=== PATIENT | male | born 1990 | race Caucasian/White ===

== ENCOUNTER 2023-08-05 08:16 | Observation (INO) | payer BC, OTHER ==
--- NOTE | 2023-08-05 08:20 | ED ---
General Adult HPI - General Source: RN notes reviewed <Kika Zaidi - Last Filed: 08/05/23 08:20> <Delmi Lopez - Last Filed: 08/10/23 23:29> - General Stated complaint: Body numbness Time Seen by Provider: 08/05/23 08:19 - History of Present Illness Initial comments: 33-year-old male with no significant past medical history presents the emergency department with abdominal pain. Patient reports accompanying symptoms of nausea, but vomiting, diarrhea, body "numbness." (Kika Zaidi) 32-year-old male with no reported past medical history presents to emergency room reporting nausea, vomiting, diarrhea. States the symptoms have been going on for the past couple of days. Denies any sick contacts with similar symptoms. Reports that he has right lower quadrant abdominal pain associated with it. Patient states he has been throwing up so much that it is caused him to have complete body numbness and tingling. States that this affects his head, legs and arms equally bilaterally. He states he tried to drink a lot of water yesterday. He was dehydrated but still has symptoms. He denies any chest pain or shortness of breath. Denies black or bloody stools. Denies hematemesis. No fevers. Patient found be hypertensive upon hospital arrival. Denies history of such. He does not see a physician. No alleviating, precipitating modifying factors (Delmi Lopez) - Related Data Previous Rx's Medication Instructions Recorded HYDROcodone/APAP 5-325MG [Mccarr 1 tab PO Q6HR PRN 3 Days #12 tab 08/07/23 5-325] Hyoscyamine Sulfate [Levbid] 0.75 mg PO HS #30 tab 08/07/23 Omeprazole [PriLOSEC] 40 mg PO DAILY 30 Days #30 cap 08/07/23 Ondansetron [Zofran] 4 mg PO Q8HR PRN 10 Days #30 tab 08/07/23 Allergies Allergy/AdvReac Type Severity Reaction Status Date / Time No Known Allergies Allergy Verified 08/05/23 14:28 Review of Systems ROS Other: All systems not noted in ROS Statement are negative. <Kika Zaidi - Last Filed: 08/05/23 08:20> ROS Other: All systems not noted in ROS Statement are negative. <Delmi Lopez - Last Filed: 08/10/23 23:29> ROS Statement: Those systems with pertinent positive or pertinent negative responses have been documented in the HPI. Past Medical History Additional Past Medical History / Comment(s): frequent abdominal pain, N/V, has umbilical hernia, hx of kidney stones History of Any Multi-Drug Resistant Organisms: None Reported Past Surgical History: Hernia Repair Additional Past Surgical History / Comment(s): as a baby Past Anesthesia/Blood Transfusion Reactions: No Reported Reaction Past Alcohol Use History: Occasional Past Drug Use History: Marijuana <Kika Zaidi - Last Filed: 08/05/23 08:20> General Exam <JaimeenoellejamesKika - Last Filed: 08/05/23 08:20> General appearance: alert, in no apparent distress Head exam: Present: atraumatic, normocephalic, normal inspection Eye exam: Present: normal appearance, PERRL, EOMI. Absent: scleral icterus, conjunctival injection, periorbital swelling ENT exam: Present: normal exam, mucous membranes moist Neck exam: Present: normal inspection. Absent: tenderness, meningismus, lymphadenopathy Respiratory exam: Present: normal lung sounds bilaterally. Absent: respiratory distress, wheezes, rales, rhonchi, stridor Cardiovascular Exam: Present: regular rate, normal rhythm, normal heart sounds. Absent: systolic murmur, diastolic murmur, rubs, gallop, clicks GI/Abdominal exam: Present: soft, normal bowel sounds. Absent: distended, tenderness, guarding, rebound, rigid Extremities exam: Present: normal inspection, full ROM, normal capillary refill. Absent: tenderness, pedal edema, joint swelling, calf tenderness Back exam: Present: normal inspection Neurological exam: Present: alert, oriented X3, CN II-XII intact Psychiatric exam: Present: normal affect, normal mood Skin exam: Present: warm, dry, intact, normal color. Absent: rash <Delmi Lopez - Last Filed: 08/10/23 23:29> - General Exam Comments Initial Comments: Visual Physical Exam Vital signs reviewed General: Well-appearing, nontoxic, no acute distress. Head: Normocephalic, atraumatic Eyes: PERRLA, EOMI ENT: Airway patent Chest: Nonlabored breathing Skin: No visual rash, normal skin tone Neuro: Alert and oriented 3 Musculoskeletal: No gross abnormalities I performed the quick note portion of this exam, verbal signature Kika Zaidi PA-C (Kika Zaidi) Course Vital Signs 08/05/23 08/05/23 08/05/23 08:34 10:22 12:28 Temperature 97.9 F Pulse Rate 87 98 112 H Respiratory 18 18 18 Rate Blood Pressure 151/60 144/100 148/101 O2 Sat by Pulse 95 98 Oximetry 08/05/23 08/05/23 08/05/23 13:46 16:35 18:08 Temperature Pulse Rate 102 H 97 98 Respiratory 18 18 18 Rate Blood Pressure 131/91 136/105 140/98 O2 Sat by Pulse 96 97 97 Oximetry 08/05/23 19:28 Temperature Pulse Rate 80 Respiratory 18 Rate Blood Pressure 137/80 O2 Sat by Pulse 96 Oximetry Medical Decision Making - Lab Data Result diagrams: 08/06/23 05:33 08/06/23 05:33 <Delmi Lopez A - Last Filed: 08/10/23 23:29> - Medical Decision Making Was pt. sent in by a medical professional or institution ([facility], [employer], urgent care, hospital, or [facility]...) When possible be specific @ -No Did you speak to anyone other than the patient for history (EMS, parent, family, police, friend...)? What history was obtained from this source @ -No Did you review nursing and triage notes (agree or disagree)? Why? @ -I reviewed and agree with nursing and triage notes Were old charts reviewed (outside hosp., previous admission, EMS record, old EKG, old radiological studies, urgent care reports/EKG's, [facility] records)? Report findings @ -No old charts were reviewed Differential Diagnosis (chest pain, altered mental status, abdominal pain women, abdominal pain men, vaginal bleeding, weakness, fever, dyspnea, syncope, headache, dizziness, GI bleed, back pain, seizure, CVA, palpatations, mental health, musculoskeletal)? @ -Neuropathy, dissection, CVA, gastroenteritis, TIA, electrolyte abnormality EKG interpreted by me (3pts min.). @ -yes and demonstrate sinus rhythm rate of 87. Pr interval 153. QRS 85. QTC of 372. No acute ST segment elevations or depressions X-rays interpreted by me (1pt min.). @ -None done CT interpreted by me (1pt min.). @ -Yes and demonstrates hepatomegaly U/S interpreted by me (1pt. min.). @ -None done What testing was considered but not performed or refused? (CT, X-rays, U/S, labs)? Why? @ -None What meds were considered but not given or refused? Why? @ -None Did you discuss the management of the patient with other professionals (professionals i.e. DrElle, PA, [employer], lab, RT, psych nurse, executive secretary social welfare, mucking machine operator, teacher, investment officer, casework manager)? Give summary @ -I spoke with Dr. Esposito who agreed to admit patient Was smoking cessation discussed for >3mins.? @ -No Was critical care preformed (if so, how long)? @ -No Were there social determinants of health that impacted care today? How? (Homelessness, low income, unemployed, alcoholism, drug addiction, transportation, low edu. Level, literacy, decrease access to med. care, longterm, rehab)? @ -No Was there de-escalation of care discussed even if they declined (Discuss DNR or withdrawal of care, Hospice)? DNR status @ -No What co-morbidities impacted this encounter? (DM, HTN, Smoking, COPD, CAD, Cancer, CVA, ARF, Chemo, Hep., AIDS, mental health diagnosis, sleep apnea, morbid obesity)? @ -Alcohol use Was patient admitted / discharged? Hospital course, mention meds given and route, prescriptions, significant lab abnormalities, going to OR and other pertinent info. @ -Admitted. Upon arrival patient was placed into room 4. Thorough history and physical exam was performed. IV access was established and laboratory studies are conducted. Patient was provided with fluids and antiemetics. Upon reevaluation the patient continues to have pain. He was given a dose of morphine. I did discuss the diagnosis, differential and treatment options. Patient still has no improvement in his symptoms. Continues to feel nauseated and refuses oral intake. Because of this I did offer admission. Called and spoke with Dr. Esposito who agreed to admit the patient. We will place surgery on consult Undiagnosed new problem with uncertain prognosis? @ -yes Drug Therapy requiring intensive monitoring for toxicity (Heparin, Nitro, Insulin, Cardizem)? @ -No Were any procedures done? @ -No Diagnosis/symptom? @ -Intractable nausea vomiting, intractable right sided abdominal pain, full body paresthesias, accelerated hypertension Acute, or Chronic, or Acute on Chronic? @ -Acute Uncomplicated (without systemic symptoms) or Complicated (systemic symptoms)? @ -complicated Side effects of treatment? @ -No Exacerbation, Progression, or Severe Exacerbation? @ -No Poses a threat to life or bodily function? How? (Chest pain, USA, GA, pneumonia, PE, COPD, DKA, ARF, appy, cholecystitis, CVA, Diverticulitis, Homicidal, Suicidal, threat to staff... and all critical care pts) @ -No (Delmi Lopez) - Lab Data Lab Results 08/05/23 08/05/23 08/05/23 Range/Units 08:49 08:49 08:49 WBC 8.2 (3.8-10.6) k/uL RBC 5.70 (4.30-5.90) m/uL Hgb 17.4 (13.0-17.5) gm/dL Hct 49.2 (39.0-53.0) % MCV 86.3 (80.0-100.0) fL MCH 30.5 (25.0-35.0) pg MCHC 35.4 (31.0-37.0) g/dL RDW 12.8 (11.5-15.5) % Plt Count 251 (150-450) k/uL MPV 7.8 Neutrophils % 77 % Lymphocytes % 14 % Monocytes % 7 % Eosinophils % 1 % Basophils % 0 % Neutrophils # 6.3 (1.3-7.7) k/uL Lymphocytes # 1.1 (1.0-4.8) k/uL Monocytes # 0.5 (0-1.0) k/uL Eosinophils # 0.1 (0-0.7) k/uL Basophils # 0.0 (0-0.2) k/uL Sodium 135 L (137-145) mmol/L Potassium 4.1 (3.5-5.1) mmol/L Chloride 94 L (98-107) mmol/L Carbon Dioxide 26 (22-30) mmol/L Anion Gap 15 mmol/L BUN 14 (9-20) mg/dL Creatinine 0.95 (0.66-1.25) mg/dL Est GFR (CKD-EPI)AfAm >90 (>60 ml/min/1.73 sqM) Est GFR (CKD-EPI)NonAf >90 (>60 ml/min/1.73 sqM) Glucose 102 H (74-99) mg/dL Plasma Lactic Acid Master 1.8 (0.7-2.0) mmol/L Calcium 10.2 (8.4-10.2) mg/dL Magnesium 1.7 (1.6-2.3) mg/dL Total Bilirubin 1.6 H (0.2-1.3) mg/dL AST 38 (17-59) U/L ALT 46 (4-49) U/L Alkaline Phosphatase 59 (38-126) U/L Troponin I (0.000-0.034) ng/mL Total Protein 8.5 H (6.3-8.2) g/dL Albumin 5.1 H (3.5-5.0) g/dL Amylase 74 (30-110) U/L Lipase 55 (23-300) U/L TSH 1.430 (0.465-4.680) mIU/L Urine Color Urine Appearance (Clear) Urine pH (5.0-8.0) Ur Specific Hope (1.001-1.035) Urine Protein (Negative) Urine Glucose (UA) (Negative) Urine Ketones (Negative) Urine Blood (Negative) Urine Nitrite (Negative) Urine Bilirubin (Negative) Urine Urobilinogen (<2.0) mg/dL Ur Leukocyte Esterase (Negative) Influenza Type A (PCR) (Not Detectd) Influenza Type B (PCR) (Not Detectd) RSV (PCR) (Not Detectd) SARS-CoV-2 (PCR) (Not Detectd) 08/05/23 08/05/23 08/05/23 Range/Units 08:49 10:14 10:14 WBC (3.8-10.6) k/uL RBC (4.30-5.90) m/uL Hgb (13.0-17.5) gm/dL Hct (39.0-53.0) % MCV (80.0-100.0) fL MCH (25.0-35.0) pg MCHC (31.0-37.0) g/dL RDW (11.5-15.5) % Plt Count (150-450) k/uL MPV Neutrophils % % Lymphocytes % % Monocytes % % Eosinophils % % Basophils % % Neutrophils # (1.3-7.7) k/uL Lymphocytes # (1.0-4.8) k/uL Monocytes # (0-1.0) k/uL Eosinophils # (0-0.7) k/uL Basophils # (0-0.2) k/uL Sodium (137-145) mmol/L Potassium (3.5-5.1) mmol/L Chloride (98-107) mmol/L Carbon Dioxide (22-30) mmol/L Anion Gap mmol/L BUN (9-20) mg/dL Creatinine (0.66-1.25) mg/dL Est GFR (CKD-EPI)AfAm (>60 ml/min/1.73 sqM) Est GFR (CKD-EPI)NonAf (>60 ml/min/1.73 sqM) Glucose (74-99) mg/dL Plasma Lactic Acid Master (0.7-2.0) mmol/L Calcium (8.4-10.2) mg/dL Magnesium (1.6-2.3) mg/dL Total Bilirubin (0.2-1.3) mg/dL AST (17-59) U/L ALT (4-49) U/L Alkaline Phosphatase (38-126) U/L Troponin I <0.012 (0.000-0.034) ng/mL Total Protein (6.3-8.2) g/dL Albumin (3.5-5.0) g/dL Amylase (30-110) U/L Lipase (23-300) U/L TSH (0.465-4.680) mIU/L Urine Color Yellow Urine Appearance Clear (Clear) Urine pH 7.0 (5.0-8.0) Ur Specific Hope 1.021 (1.001-1.035) Urine Protein Trace H (Negative) Urine Glucose (UA) Negative (Negative) Urine Ketones 3+ H (Negative) Urine Blood Negative (Negative) Urine Nitrite Negative (Negative) Urine Bilirubin Negative (Negative) Urine Urobilinogen 2.0 (<2.0) mg/dL Ur Leukocyte Esterase Negative (Negative) Influenza Type A (PCR) Not Detected (Not Detectd) Influenza Type B (PCR) Not Detected (Not Detectd) RSV (PCR) Not Detected (Not Detectd) SARS-CoV-2 (PCR) Not Detected (Not Detectd) Disposition <Kika Zaidi - Last Filed: 08/05/23 08:20> Is patient prescribed a controlled substance at d/c from ED?: No Time of Disposition: 14:25 Decision to Admit Reason: Admit from EC Decision Date: 08/05/23 Decision Time: 14:25 <Delmi Lopez - Last Filed: 08/10/23 23:29> Clinical Impression: Hypertension, Nausea & vomiting, Ketosis Disposition: ADMITTED IP TO THIS [facility] Condition: Stable
[2023-08-05 08:59] LABS: Basophils % (A) 0 %; Eosinophils # (A) 0.1 k/uL (0-0.7); Eosinophils % (A) 1 %; HCT 49.2 % (39.0-53.0); HGB 17.4 gm/dL (13.0-17.5); Lymphocytes # (A) 1.1 k/uL (1.0-4.8); Lymphocytes % (A) 14 %; MCH 30.5 pg (25.0-35.0); MCHC 35.4 g/dL (31.0-37.0); MCV 86.3 fL (80.0-100.0); Mean Platelet Volume 7.8; Monocytes # (A) 0.5 k/uL (0-1.0); Monocytes % (A) 7 %; Neutrophils # (A) 6.3 k/uL (1.3-7.7); Neutrophils % (A) 77 %; Platelet Count 251 k/uL (150-450); RDW 12.8 % (11.5-15.5); WBC 8.2 k/uL (3.8-10.6)
[2023-08-05 09:01] LABS: Appearance,Urine Clear (Clear); Bilirubin,Urine Negative (Negative); Blood,Urine Negative (Negative); Color,Urine Yellow; Glucose,Urine (UA) Negative (Negative); Ketones,Urine 3+ (Negative); Leukocyte Esterase,Urine Negative (Negative); Nitrite,Urine Negative (Negative); Protein,Urine Trace (Negative); Specific Gravity,Urine 1.021 (1.001-1.035)
[2023-08-05 09:15] LABS: ALT 46 U/L (4-49); AST 38 U/L (17-59); African American GFR (CKD) >90 (>60 ml/min/1.73 sqM); Albumin 5.1 g/dL (3.5-5.0); Alkaline Phosphatase 59 U/L (38-126); Amylase 74 U/L (30-110); Anion Gap 15 mmol/L; Blood Urea Nitrogen 14 mg/dL (9-20); Calcium 10.2 mg/dL (8.4-10.2); Carbon Dioxide 26 mmol/L (22-30); Chloride 94 mmol/L (98-107); Glucose 102 mg/dL (74-99); Lipase 55 U/L (23-300); Magnesium 1.7 mg/dL (1.6-2.3); Non-African American GFR(CKD) >90 (>60 ml/min/1.73 sqM); Potassium 4.1 mmol/L (3.5-5.1); Sodium 135 mmol/L (137-145); Total Bilirubin 1.6 mg/dL (0.2-1.3); Total Protein 8.5 g/dL (6.3-8.2)
[2023-08-05] MEDS ORDERED: SODIUM CHLORIDE 0.9% 2,000 ML IV ONE (09:39)
--- NOTE | 2023-08-05 11:31 | CT ---
EXAMINATION TYPE: CT abdomen pelvis w con CT DLP: 851.5 mGycm, Automated exposure control for dose reduction was used. DATE OF EXAM: 08/05/2023 11:09 AM COMPARISON: None. CLINICAL INDICATION:Male, 32 years old with history of rlq pain, vomiting; RLQ pain TECHNIQUE: Axial CT of the abdomen and pelvis. Sagittal and coronal reformats were created on a [employer] workstation. Contrast used:100 mL of Isovue 370 with IV Contrast, (none if empty) Oral contrast used: without Oral Contrast (none if empty) FINDINGS: LOWER CHEST: Unremarkable ABDOMEN LIVER: Diffusely hypoattenuating parenchyma. Focal fatty infiltration of the falciform ligament. GALLBLADDER AND BILE DUCTS: Unremarkable. PANCREAS: Unremarkable. SPLEEN: Unremarkable. ADRENAL GLANDS: Unremarkable. KIDNEYS AND URETERS: No evidence of hydronephrosis or renal calculus. The ureters are unremarkable. PELVIS BLADDER: Unremarkable REPRODUCTIVE: Unremarkable. ABDOMEN & PELVIS STOMACH AND BOWEL: No evidence of bowel obstruction. The appendix is normal. PERITONEUM/RETROPERITONEUM: No evidence of pneumoperitoneum or free fluid. VASCULATURE: No evidence of aortic aneurysm. MUSCULOSKELETAL: No acute osseous abnormalities LYMPH NODES: No gross evidence for lymphadenopathy. SOFT TISSUE/ABDOMINAL WALL: Fat-containing buccal hernia. IMPRESSION: No evidence for acute right lower quadrant process to explain the patient's pain. The appendix is nor mal. No obstructive uropathy or renal calculus.
[2023-08-05] MEDS ORDERED: ONDANSETRON 4 MG/2 ML VIAL IVP STA (12:16)
[2023-08-05] MEDS ORDERED: MORPHINE SULFATE 4 MG/ML SYRINGE IVP STA (12:31)
[2023-08-05] MEDS ORDERED: HYDROmorphone 1 MG/ML 1 ML SYRINGE IVP STA (13:58)
[2023-08-05] MEDS ORDERED: NALOXONE 0.4 MG/ML 1 ML VIAL IV PRN (14:25)
--- NOTE | 2023-08-05 16:35 | US ---
EXAMINATION TYPE: US abdomen limited DATE OF EXAM: 08/05/2023 COMPARISON: Same day CT CLINICAL INDICATION: Male, 32 years old with history of liver, gallbladder; ABD Pain, abnormal labs TECHNIQUE: Multiple sonographic images of the right upper quadrant are obtained. FINDINGS: EXAM MEASUREMENTS: Liver Length: 18.3 cm Gallbladder Wall: 0.1 cm CBD: 0.5 cm Right Kidney: 11.2 x 4.8 x 5.8 cm STEEL RULE INSPECTOR NOTES: Pancreas: wnl, tail obscured by overlying bowel gas Liver: Enlarged, heterogeneous, difficult to penetrate Gallbladder: wnl Evidence for sonographic Donaldson's sign: No CBD: wnl Right Kidney: wnl The visualized portions of the pancreas are within normal limits. The tail is obscured by overlying b owel gas. Liver is diffusely heterogenous with increased echotexture and enlarged. It is difficult to penetrate. This was evaluation focal lesions. No gross evidence of focal lesion. Gallbladder is with in normal limits without evidence of wall thickening, pericholecystic fluid, or stones. Per sonograph er, negative sonographic Donaldson sign. Common bile duct is within normal limits. Right kidney is unrem arkable without evidence of hydronephrosis, nephrolithiasis, or solid mass. IMPRESSION: 1. No ultrasound evidence for acute process. 2. Hepatomegaly with marked fatty infiltration.
[2023-08-05 18:18] LABS: Amphetamine Screen,Urine Not Detected (NotDetected); Barbiturate Screen,Urine Not Detected (NotDetected); Benzodiazepines Screen,Urine Not Detected (NotDetected); Cocaine Screen,Urine Not Detected (NotDetected); Methadone Screen, Urine Not Detected (NotDetected); Opiate Screen,Urine Detected (NotDetected); Phencyclidine Screen,Urine Not Detected (NotDetected); Tricyclic Antidepressant,Urine Not Detected (NotDetected); Urn Cannabinoid Scrn Detected (NotDetected)
[2023-08-05 18:19] LABS: Oxycodone Screen, Urine Not Detected (NotDetected)
[2023-08-05] MEDS: SODIUM CHLORIDE 0.9% 1,000 ML IV SCH ×2 (19:29→22:29)
[2023-08-05] MEDS: MORPHINE SULFATE 4 MG/ML SYRINGE IV PRN (20:15)
[2023-08-05] MEDS: ONDANSETRON 4 MG/2 ML VIAL IVP PRN (20:33)
--- NOTE | 2023-08-05 23:59 | P.HPIM ---
History of Present Illness H&P Date: 08/05/23 Chief Complaint: Nausea and vomiting and diarrhea Patient is a 33-year-old male without significant past medical history presents to ER with complaints of nausea vomiting and diarrhea. Patient has been having symptoms for the past 3 days. Patient is also complaining of right lower quadrant abdominal pain. Patient has been having multiple episodes of emesis and states that it causes him numbness in the head and tingling sensation in the arms and legs bilaterally. Patient thought he was very dehydrated yesterday and drank a lot of water. Patient is also complaining of dark red blood in the emesis. Denies any bright blood. He denies any dark-colored stools. No complaints of fever or chills. No chest pain or shortness of breath. No leg swelling. Patient is very anxious and also found to have elevated blood pressure with SBP in 150s on admission. Patient does not have any primary care physician and does not take any medications at home. CT of the abdomen pelvis showed no evidence of acute right lower quadrant process to explain the patient's pain. The appendix is normal. No obstructive uropathy or renal calculus noted. EKG showed sinus rhythm with sinus arrhythmia. Laboratory data showed sodium 135 potassium 4.1 chloride 94 bicarb is 26 BUN 14 and creatinine 0.95 blood sugar 102 and total bilirubin level is 1.6 with. Liver enzymes elevated. Lipase 55 amylase 74 and TSH 1.430 troponin x1 negative. Magnesium 1.7. Review of Systems Constitutional: Patient denies any fever or chills . no Generalized weakness. Abdomen: Patient complains of nausea vomiting and diarrhea and right lower quadrant abd. pain Cardiovascular: Patient denies any chest pain or short of breath no palpitations. Respiratory: patient denied any cough . no sputum production. No shortness of breath Neurologic: Patient denied any numbness or tingling headache. Musculoskeletal: Patient denies any complaints of joint swelling or deformity. Skin: Negative Psychiatric: Anxiety Endocrine: No heat or cold intolerance. No recent weight gain. Genitourinary: No dysuria or hematuria. All other 14 point ROS negative except the above Past Medical History Additional Past Medical History / Comment(s): frequent abdominal pain, N/V, has umbilical hernia, hx of kidney stones History of Any Multi-Drug Resistant Organisms: None Reported Past Surgical History: Hernia Repair Additional Past Surgical History / Comment(s): as a baby Past Anesthesia/Blood Transfusion Reactions: No Reported Reaction Past Psychological History: No Psychological Hx Reported Smoking Status: Current every day smoker Past Alcohol Use History: Occasional Past Drug Use History: Marijuana Medications and Allergies Home Medications Medication Instructions Recorded Confirmed Type No Known Home Medications 08/05/23 08/05/23 History Allergies Allergy/AdvReac Type Severity Reaction Status Date / Time No Known Allergies Allergy Verified 08/05/23 14:28 Physical Exam Vitals: Vital Signs Temp Pulse Resp BP Pulse Ox 08/05/23 18:08 98 18 140/98 97 08/05/23 16:35 97 18 136/105 97 08/05/23 13:46 102 H 18 131/91 96 08/05/23 12:28 112 H 18 148/101 98 08/05/23 10:22 98 18 144/100 95 08/05/23 08:34 97.9 F 87 18 151/60 Intake and Output 08/05/23 08/05/23 08/05/23 06:59 14:59 22:59 Other: Weight 77.111 kg PHYSICAL EXAMINATION: Patient is lying in the bed, no acute distress, awake alert and oriented but anxious... HEENT: Normocephalic. Neck is supple. Pupils reactive. Nostrils clear. Oral cavity is moist. Neck reveals no JVD, carotid bruits, or thyromegaly. CHEST EXAMINATION: Trachea is central. Symmetrical expansion. Lung gaxiola clear to auscultation and percussion. CARDIAC: Normal S1, S2 with no gallops. No murmurs ABDOMEN: Soft. Bowel sounds present. Mild right quadrant tenderness. No guarding or rigidity.. No organomegaly. No abdominal bruits. Extremities: reveal no edema. No clubbing or cyanosis Neurologically awake, alert, oriented x3 with well-coordinated movements. No focal deficits noted Skin: No rash or skin lesions. Psychiatric: Coperative. Nonsuicidal, Musculoskeletal: No joint swelling or deformity. Normal range of motion. Results CBC & Chem 7: 08/05/23 08:49 08/05/23 08:49 Labs: Abnormal Lab Results - Last 24 Hours (Table) 08/05/23 08/05/23 08/05/23 Range/Units 08:49 08:49 17:31 Sodium 135 L (137-145) mmol/L Chloride 94 L (98-107) mmol/L Glucose 102 H (74-99) mg/dL Total Bilirubin 1.6 H (0.2-1.3) mg/dL Total Protein 8.5 H (6.3-8.2) g/dL Albumin 5.1 H (3.5-5.0) g/dL Urine Protein Trace H (Negative) Urine Ketones 3+ H (Negative) Urine Opiates Screen Detected H (NotDetected) U Marijuana (THC) Screen Detected H (NotDetected) Thrombosis Risk Factor Assmnt - DVT/VTE Prophylaxis DVT/VTE Prophylaxis: Pharmacologic Prophylaxis ordered Assessment and Plan Assessment: Intractable nausea vomiting and diarrhea along with abdominal pain. Possible gastroenteritis versus withdrawal symptoms. UDS positive for opiates and marijuana Questionable coffee-ground emesis Elevated blood pressure Hypomagnesemia Anxiety GI prophylaxis and DVT prophylaxis. Plan: Patient be continued on IV hydration and continue with pain management and symptomatic management for nausea and vomiting. CT of abdomen pelvis showed no acute process. Replace magnesium and general surgery was consulted for further evaluation of abdominal pain. Continue to follow closely. Follow-up CBC and BMP tomorrow.
[2023-08-06] MEDS: MAGNESIUM SULFATE-D5W PMX 1 GM in DEXTROSE/WATER 1 100ML.BAG IVPB SCH ×2 (00:46→01:33)
[2023-08-06] MEDS: PANTOPRAZOLE 40 MG/10 ML VIAL IVP SCH ×2 (00:46→08:05)
[2023-08-06] MEDS: HEPARIN SODIUM,PORCINE 5,000 UNIT/ML 1 ML VIAL SQ SCH ×5 (00:47→23:44)
[2023-08-06] MEDS: SODIUM CHLORIDE 0.9% 1,000 ML IV SCH ×3 (03:33→20:26)
[2023-08-06] MEDS: MORPHINE SULFATE 4 MG/ML SYRINGE IV PRN ×4 (04:03→20:25)
[2023-08-06 08:25] VITALS: RESP 16
[2023-08-06 09:24] LABS: Basophils # (A) 0.04 X 10*3/uL (0.00-0.10); Basophils % (A) 0.8 %; Eosinophils # (A) 0.22 X 10*3/uL (0.04-0.35); Eosinophils % (A) 4.3 %; HCT 41.5 % (39.6-50.0); HGB 14.7 d/dL (13.0-17.0); Lymphocytes # (A) 1.19 X 10*3/uL (0.90-5.00); Lymphocytes % (A) 23.4 %; MCH 30.4 pg (27.0-32.0); MCHC 35.4 d/dL (32.0-37.0); MCV 85.7 FL (80.0-97.0); Mean Platelet Volume 10.3 FL (9.5-12.2); Monocytes # (A) 0.53 X 10*3/uL (0.20-1.00); Monocytes % (A) 10.4 %; NRBC Per 100 WBC 0 X 10*3/uL (0.00-0.01); Neutrophils # (A) 3.08 X 10*3/uL (1.80-7.70); Neutrophils % (A) 60.5 %; Platelet Count 163 X 10*3/uL (140-440); RBC 4.84 X 10*6/uL (4.40-5.60); RDW 12.4 % (11.5-14.5); WBC 5.09 X 10*3/uL (4.50-10.00)
[2023-08-06 09:30] LABS: Blood Urea Nitrogen 10.9 mg/dL (9.0-27.0); Calcium 8.6 mg/dL (8.7-10.3); Chloride 102 mmol/L (96-109); Glucose 82 mg/dL (70-110); Potassium 4.3 mmol/L (3.5-5.5); Sodium 137 mmol/L (135-145)
[2023-08-06] MEDS: ONDANSETRON 4 MG/2 ML VIAL IVP PRN ×2 (12:38→20:24)
--- NOTE | 2023-08-06 12:46 | NM ---
EXAMINATION TYPE: NM hepatobiliary w CCK DATE OF EXAM: 08/06/2023 COMPARISON: Ultrasound 08/05/2023 CLINICAL INDICATION: Male, 32 years old with history of Abdominal pain; TECHNIQUE: After the intravenous administration of 4.5 mCi Tc 99m Mebrofenin hepatobiliary scintigrap hy is performed. Immediate images post injection. FINDINGS: There is satisfactory initial accumulation of tracer by the liver. The gallbladder is visualized wit hin 46 minutes. The small bowel activity is noted within 10 minutes. At one hour CCK was administer ed, patient was injected with 1.5 mcg of Kinevac, and gallbladder ejection fraction is calculated at 28 %, which is diminished. IMPRESSION: 1. No scintigraphic evidence for acute cholecystitis. 2. However, gallbladder ejection fraction is diminished at 28%. Findings may be seen with chronic cho lecystitis or biliary dyskinesia.
--- NOTE | 2023-08-06 16:04 | P.GSCN ---
History of Present Illness Consult date: 08/06/23 History of present illness: CHIEF COMPLAINT: Abdominal pain HISTORY OF PRESENT ILLNESS: This is a 32-year-old male who has presented with nausea vomiting and diarrhea. Patient does have pain in the right upper quadrant and right lower abdomen. Patient reports that he has been dealing with this right upper quadrant pain intermittently for years. He does report a fa zoey history of cholecystectomies. He does report having intermittent blood in his stools. It's been a week since he last reported any blood in his stools. Surgical history includes a hernia repair as an infant. He has had EGD years ago and reported as normal. He has never had a colonoscopy. PAST MEDICAL HISTORY: Kidney stones PAST SURGICAL HISTORY: Hernia repair as an infant MEDICATIONS: See below ALLERGIES: See below SOCIAL HISTORY: No illicit drug use. Does report a history of heavy alcohol use. But has cut that over the last 6 months and only has alcoholic beverages on the weekends. REVIEW OF SYSTEMS: CONSTITUTIONAL: Denies fever or chills. HEENT: Denies blurred vision, vision changes, or eye pain. Denies hemoptysis CARDIOVASCULAR: Denies chest pain or pressure. RESPIRATORY: No shortness of breath. GASTROINTESTINAL: See HPI for pertinent findings HEMATOLOGIC: Denies bleeding disorders. GENITOURINARY: Denies any blood in urine or increased urinary frequency. SKIN: Denies pruitis. Denies rash. PHYSICAL EXAM: VITAL SIGNS: Reviewed GENERAL: Well-developed in no acute distress. HEENT: No sclera icterus. Extraocular movements grossly intact. Moist buccal m ucosa. Head is atraumatic, normocephalic. No nasal drainage. ABDOMEN: Soft. Nondistended. Tenderness of palpation of the right upper quadrant and right lower abdominal tenderness NEUROLOGIC: Alert and oriented. Cranial nerves II through XII grossly intact. LABORATORY DATA: WBC 5.09 Hgb 14.7 platelets 163 Sodium 137 potassium is 4.3 creatinine 1.0 Total bili 1.6 AST 38 ALT 46 lipase 55 IMAGING: Computed tomography scan of pelvis no evidence for acute right lower quadrant process to patient's pain. The appendix is normal. No obstructive uropathy or renal calculus. Abdominal ultrasound no EVIDENCE OF ACUTE PROCESS. HEPATOMEGALY WITH MARKED FATTY INFILTRATION. HIDA scan no evidence for acute cholecystitis. However gallbladder EF is diminished at 28%. Findings may be seen with chronic cholecystitis or biliary dyskinesia ASSESSMENT: 1. Right upper quadrant abdominal pain 2. Chronic cholecystitis or biliary dyskinesia. HIDA scan shows gallbladder EF diminished at 28% 3. Intermittent bloody stools. No active bleeding for over one week. Hemoglobin stable. PLAN: -No surgical intervention planned at this time -Start full liquid diet -Continue to monitor -Recommend colonoscopy outpatient due to intermittent bloody stools Physician Door Clamp Operator note has been reviewed by physician. Signing provider agrees with the documented findings, assessment, and plan of care. Past Medical History Additional Past Medical History / Comment(s): frequent abdominal pain, N/V, has umbilical hernia, hx of kidney stones History of Any Multi-Drug Resistant Organisms: None Reported Past Surgical History: Hernia Repair Additional Past Surgical History / Comment(s): as a baby Past Anesthesia/Blood Transfusion Reactions: No Reported Reaction Past Psychological History: No Psychological Hx Reported Smoking Status: Current every day smoker Past Alcohol Use History: Occasional Past Drug Use History: Marijuana Medications and Allergies Home Medications Medication Instructions Recorded Confirmed Type No Known Home Medications 08/05/23 08/05/23 History Allergies Allergy/AdvReac Type Severity Reaction Status Date / Time No Known Allergies Allergy Verified 08/05/23 14:28 Surgical - Exam Vital Signs Temp Pulse Resp BP 97.9 F 87 18 151/60 08/05/23 08:34 08/05/23 08:34 08/05/23 08:34 08/05/23 08:34 Results - Labs 08/06/23 05:33 08/06/23 05:33 Abnormal Lab Results - Last 24 Hours (Table) 08/05/23 08/06/23 Range/Units 17:31 05:33 BUN/Creatinine Ratio 10.90 L (12.00-20.00) Ratio Calcium 8.6 L (8.7-10.3) mg/dL Urine Opiates Screen Detected H (NotDetected) U Marijuana (THC) Screen Detected H (NotDetected) Diabetes panel 08/06/23 Range/Units 05:33 Sodium 137 (135-145) mmol/L Potassium 4.3 (3.5-5.5) mmol/L Chloride 102 (96-109) mmol/L Carbon Dioxide 24.0 (21.6-31.8) mmol/L BUN 10.9 (9.0-27.0) mg/dL Creatinine 1.0 (0.6-1.5) mg/dL Glucose 82 (70-110) mg/dL Calcium 8.6 L (8.7-10.3) mg/dL Calcium panel 08/06/23 Range/Units 05:33 Calcium 8.6 L (8.7-10.3) mg/dL Pituitary panel 08/06/23 Range/Units 05:33 Sodium 137 (135-145) mmol/L Potassium 4.3 (3.5-5.5) mmol/L Chloride 102 (96-109) mmol/L Carbon Dioxide 24.0 (21.6-31.8) mmol/L BUN 10.9 (9.0-27.0) mg/dL Creatinine 1.0 (0.6-1.5) mg/dL Glucose 82 (70-110) mg/dL Calcium 8.6 L (8.7-10.3) mg/dL Adrenal panel 08/06/23 Range/Units 05:33 Sodium 137 (135-145) mmol/L Potassium 4.3 (3.5-5.5) mmol/L Chloride 102 (96-109) mmol/L Carbon Dioxide 24.0 (21.6-31.8) mmol/L BUN 10.9 (9.0-27.0) mg/dL Creatinine 1.0 (0.6-1.5) mg/dL Glucose 82 (70-110) mg/dL Calcium 8.6 L (8.7-10.3) mg/dL
--- NOTE | 2023-08-06 22:40 | P.PN ---
Subjective Patient is a 33-year-old male without significant past medical history presents to ER with complaints of nausea vomiting and diarrhea. Patient has been having symptoms for the past 3 days. Patient is also complaining of right lower quadrant abdominal pain. Patient has been having multiple episodes of emesis and states that it causes him numbness in the head and tingling sensation in the arms and legs bilaterally. Patient thought he was very dehydrated yesterday and drank a lot of water. Patient is also complaining of dark red blood in the emesis. Denies any bright blood. He denies any dark-colored stools. No complaints of fever or chills. No chest pain or shortness of breath. No leg swelling. Patient is very anxious and also found to have elevated blood pressure with SBP in 150s on admission. Patient does not have any primary care physician and does not take any medications at home. CT of the abdomen pelvis showed no evidence of acute right lower quadrant process to explain the patient's pain. The appendix is normal. No obstructive uropathy or renal calculus noted. EKG showed sinus rhythm with sinus arrhythmia. Laboratory data showed sodium 135 potassium 4.1 chloride 94 bicarb is 26 BUN 14 and creatinine 0.95 blood sugar 102 and total bilirubin level is 1.6 with. Liver enzymes elevated. Lipase 55 amylase 74 and TSH 1.430 troponin x1 negative. Magnesium 1.7. 08/06/2023 This is a pleasant [age] years old male who presents with signs symptoms of gastroenteritis with nausea vomiting. Patient vitals and labs are stable Patient today could not tolerate diet and his been throwing up although he is on liquid diet His been complaining of from periumbilical pain about 8/10. HIDA scan showing no acute cholecystitis but evidence of biliary dyskinesia with ejection fraction of 28% versus chronic cholecystitis Surgery team R following closely Objective - Vital Signs Vital signs: Vital Signs Temp 98.6 F 08/06/23 13:42 Pulse 83 08/06/23 13:42 Resp 16 08/06/23 20:00 BP 149/94 08/06/23 13:42 Pulse Ox 97 08/06/23 13:42 FiO2 Intake & Output 08/06/23 08/06/23 08/07/23 06:59 18:59 06:59 Intake Total 1327 Balance 1327 Weight 77.111 kg Intake: Oral 1327 Other: Voiding Method Toilet Toilet # Voids 3 3 1 - Exam GENERAL: The patient is alert and oriented x3, not in any acute distress. Well developed, well nourished. HEENT: Pupils are round and equally reacting to light. EOMI. No scleral icterus. No conjunctival pallor. Normocephalic, atraumatic. No pharyngeal erythema. No thyromegaly. CARDIOVASCULAR: S1 and S2 present. No murmurs, rubs, or gallops. PULMONARY: Chest is clear to auscultation, no wheezing , no crackles. -ABDOMEN: Soft, mild periumbilical tenderness, nondistended, normoactive bowel sounds. No palpable organomegaly. MUSCULOSKELETAL: No joint swelling or deformity. EXTREMITIES: No cyanosis, clubbing, or pedal edema. NEUROLOGICAL: Gross neurological examination did not reveal any focal deficits. SKIN: No rashes. no petechiae. - Labs CBC & Chem 7: 08/06/23 05:33 08/06/23 05:33 Labs: Abnormal Lab Results - Last 24 Hours (Table) 08/06/23 Range/Units 05:33 BUN/Creatinine Ratio 10.90 L (12.00-20.00) Ratio Calcium 8.6 L (8.7-10.3) mg/dL Assessment and Plan Assessment: biliary dyskinesia with ejection fraction of 28% versus chronic cholecystitis Acute gastroenteritis with nausea vomiting and periumbilical pain Substance abuse with marijuana which could be contributing to the patient presentation Hepatomegaly with fatty infiltration of liver ultrasound Obesity with BMI of 30.1 Dehydration improving. Plan: Continue with bowel rest IV fluids Symptomatic management with antinausea medication Surgery team following closely. Labs and medication were reviewed.. Continue same treatment. Continue with symptomatic treatment. Resume home medication. Monitor labs and vitals. DVT and GI prophylaxis. Further recommendations as per clinical course of the patient DVT prophylaxis: Subcutaneous heparin GI Prophylaxis: Ppi Prognosis is guarded
[2023-08-07] MEDS: MORPHINE SULFATE 4 MG/ML SYRINGE IV PRN ×3 (01:45→16:42)
[2023-08-07] MEDS: SODIUM CHLORIDE 0.9% 1,000 ML IV SCH ×3 (06:56→20:07)
[2023-08-07] MEDS: PANTOPRAZOLE 40 MG/10 ML VIAL IVP SCH (08:27)
[2023-08-07] MEDS: ONDANSETRON 4 MG/2 ML VIAL IVP PRN ×2 (08:28→16:43)
[2023-08-07] MEDS: HEPARIN SODIUM,PORCINE 5,000 UNIT/ML 1 ML VIAL SQ SCH ×2 (08:34→16:40)
--- NOTE | 2023-08-07 10:41 | P.CRDCN ---
History of Present Illness History of present illness: HISTORY OF PRESENT ILLNESS: This is a 32-year-old male with a past medical history significant for frequent abdominal pain, umbilical hernia, and nicotine dependence. Patient does not follow with a fruit rancher. We have been asked to see the patient in consultation for sinus pauses. Patient examined at the bedside. The patient is admitted to the hospital secondary to abdominal pain. Patient was found to have chronic cholecystitis. General surgery is also following and recommending outpatient colonoscopy due to intermittent bloody stools. Overnight, the pat ient did have some sinus pauses of 23 seconds. Patient has been asymptomatic. He denies having any syncopal episodes recently. He does report having an episode of syncope about 6 months ago where he went to get a glass of water and passed out and the next thing he remembers was waking up to people around him. The patient denies any chest pain or pressure. He denies any shortness of breath. He denies any dizziness or lightheadedness. * EKG reveals sinus mechanism with no signs of acute ischemia * Laboratory data: WBC 5.09. Hemoglobin 14.7. Platelet count 163. Sodium 137. Potassium 4.3. BUN 10.9. Creatinine 1.0. Troponin negative 1. TSH 1.430. * Current home cardiac medications include none REVIEW OF SYSTEMS: At the time of my exam: CONSTITUTIONAL: Denies fever or chills. HEENT: Denies blurred vision, vision changes, or eye pain. Denies hemoptysis CARDIOVASCULAR: Denies chest pain. Denies orthopnea. Denies PND. Denies palpitations RESPIRATORY: Denies shortness of breath. GASTROINTESTINAL: Denies abdominal pain. Denies nausea or vomiting. HEMATOLOGIC: Denies bleeding disorders. GENITOURINARY: Denies any blood in urine. SKIN: Denies pruitis. Denies rash. PHYSICAL EXAM: VITAL SIGNS: Reviewed. GENERAL: Well-developed in no acute distress. HEENT: Head is normocephalic. Pupils are equal, round. Sclerae anicteric. Mucous membranes of the mouth are moist. Neck supple. No JVD or thyromegaly LUNGS: Respirations even and unlabored. Lungs essentially clear to auscultation bilaterally. HEART: Regular rate and rhythm. S1 and S2 heard. ABDOMEN: Soft. Nondistended. Nontender. EXTREMITIES: Normal range of motion. No clubbing or cyanosis. Peripheral pulses intact. No lower extremity edema NEUROLOGIC: Awake and alert. Oriented x 3. ASSESSMENT: Acute on chronic abdominal pain Sinus pauses, asymptomatic, suspect vagal in etiology History of umbilical hernia History of syncope, 6 months ago Nicotine dependence PLAN: Obtain 2-D echo to assess cardiac structure and function Continue telemetry monitoring Begin Hyoscyamine 0.75mg at HS Further recommendations pending patient's course Nurse practitioner note has been reviewed by physician. Signing provider agrees with the documented findings, assessment, and plan of care. Past Medical History Additional Past Medical History / Comment(s): frequent abdominal pain, N/V, has umbilical hernia, hx of kidney stones History of Any Multi-Drug Resistant Organisms: None Reported Past Surgical History: Hernia Repair Additional Past Surgical History / Comment(s): as a baby Past Anesthesia/Blood Transfusion Reactions: No Reported Reaction Past Psychological History: No Psychological Hx Reported Smoking Status: Current every day smoker Past Alcohol Use History: Occasional Past Drug Use History: Marijuana Medications and Allergies Home Medications Medication Instructions Recorded Confirmed Type No Known Home Medications 08/05/23 08/05/23 History Allergies Allergy/AdvReac Type Severity Reaction Status Date / Time No Known Allergies Allergy Verified 08/05/23 14:28 Physical Exam Vitals: Vital Signs Temp Pulse Resp BP Pulse Ox 08/07/23 07:00 97.9 F 89 16 127/82 98 08/07/23 01:50 98.6 F 97 16 144/98 97 08/06/23 20:00 16 08/06/23 19:29 98.0 F 85 15 141/88 98 08/06/23 13:42 98.6 F 83 16 149/94 97 Intake and Output 08/06/23 08/07/23 08/07/23 22:59 06:59 14:59 Intake Total 618 Balance 618 Intake: Oral 618 Other: Voiding Method Toilet # Voids 1 2 Results 08/06/23 05:33 08/06/23 05:33 CBC 08/06/23 Range/Units 05:33 WBC 5.09 (4.50-10.00) X 10*3/uL RBC 4.84 (4.40-5.60) X 10*6/uL Hgb 14.7 (13.0-17.0) d/dL Hct 41.5 (39.6-50.0) % Plt Count 163 (140-440) X 10*3/uL Comprehensive Metabolic Panel 08/06/23 Range/Units 05:33 Sodium 137 (135-145) mmol/L Potassium 4.3 (3.5-5.5) mmol/L Chloride 102 (96-109) mmol/L Carbon Dioxide 24.0 (21.6-31.8) mmol/L BUN 10.9 (9.0-27.0) mg/dL Creatinine 1.0 (0.6-1.5) mg/dL Glucose 82 (70-110) mg/dL Calcium 8.6 L (8.7-10.3) mg/dL Current Medications Generic Name Dose Route Start Last Admin Trade Name Freq PRN Reason Stop Dose Admin Heparin Sodium (Porcine) 5,000 unit 08/06/23 00:00 08/06/23 23:44 Heparin Sodium,Porcine 5,000 Unit/Ml 1 Ml Vial SQ Not Given Q8HR ROBIN Sodium Chloride 1,000 mls @ 130 mls/hr 08/05/23 14:30 08/07/23 06:56 Saline 0.9% IV 130 mls/hr .[id number] ROBIN Administration Morphine Sulfate 4 mg 08/05/23 14:25 08/07/23 01:45 Morphine Sulfate 4 Mg/Ml Syringe IV 4 mg Q4HR PRN Administration Severe Pain (Scale 7 to 10) Naloxone HCl 0.2 mg 08/05/23 14:25 Naloxone 0.4 Mg/Ml 1 Ml Vial IV Q2M PRN Opioid Reversal Ondansetron HCl 4 mg 08/05/23 14:25 08/06/23 20:24 Ondansetron 4 Mg/2 Ml Vial IVP 4 mg Q8HR PRN Administration Nausea And Vomiting Pantoprazole Sodium 40 mg 08/05/23 23:45 08/06/23 08:05 Pantoprazole 40 Mg/10 Ml Vial IVP 40 mg DAILY ROBIN Administration Intake and Output 08/06/23 08/07/23 08/07/23 22:59 06:59 14:59 Intake Total 618 Balance 618 Intake: Oral 618 Other: Voiding Method Toilet # Voids 1 2 08/06/23 05:33 08/06/23 05:33
[2023-08-07] MEDS ORDERED: HYDROcodone/APAP 5-325MG 1 EACH TAB PO STA (12:09)
[2023-08-07] MEDS ORDERED: HYDROcodone/APAP 5-325MG 1 EACH TAB PO PRN (12:09)
--- NOTE | 2023-08-07 12:21 | P.PN ---
Progress Note - Text Progress Note Date: 08/07/23 Patient feels slight better today. On exam vital signs are stable. Abdomen soft. There is some minimal right- sided tenderness. There is no rebound or guarding. Patient's HIDA scan shows a 28 % ejection fraction consistent with chronic cholecystitis. The patient also has had some minimal intermittent rectal bleeding. The patient will be scheduled for outpatient laparoscopically cholecystectomy next week. He should have an outpatient colonoscopy performed at a later date. The patient is stable from discharge from a surgical standpoint.
[2023-08-07 13:47] VITALS: BP 161/94; PULSE 101; TEMP 98.2
[2023-08-07 16:54] LABS: LDL Cholesterol,Calculated 116.6 mg/dL (0.0-131.0)
--- NOTE | 2023-08-07 19:34 | CA ---
Transthoracic Echo Report Name: Lucius Lopez Age: 32 Gender: M : 1990 Exam Date: 08/07/2023 09:49 Exam Location: [facility] Ht (in): 63 Wt (lb): 170 Ordering Physician: Rhona Zaragoza Attending/Referring Phys: [id number], Mila Bread Racker Domi Wheeler RDCS Procedure CPT: Indications: LV function, sinus pauses Cardiac Hx: Technical Quality: Fair Contrast 1: Total Dose (mL): Contrast 2: Total Dose (mL): MEASUREMENTS (Male / Female) Normal Values 2D ECHO LV Diastolic Diameter PLAX 4.5 cm 4.2 - 5.9 / 3.9 - 5.3 cm LV Systolic Diameter PLAX 2.3 cm IVS Diastolic Thickness 1.2 cm 0.6 - 1.0 / 0.6 - 0.9 cm LVPW Diastolic Thickness 1.2 cm 0.6 - 1.0 / 0.6 - 0.9 cm LV Relative Wall Thickness 0.5 RV Internal Dim ED PLAX 3.7 cm LA Volume 44.7 cm??? 18 - 58 / 22 - 52 cm??? LA Volume Index 23.8 cm???/m??? 16 - 28 cm???/m??? M-MODE Aortic Root Diameter MM 2.6 cm LA Systolic Diameter MM 3.8 cm LA Ao Ratio MM 1.5 AV Cusp Separation MM 2.0 cm DOPPLER AV Peak Velocity 141.7 cm/s AV Peak Gradient 8.0 mmHg AV Mean Velocity 102.2 cm/s AV Mean Gradient 4.6 mmHg AV Velocity Time Integral 25.9 cm LVOT Peak Velocity 126.0 cm/s LVOT Peak Gradient 6.3 mmHg LVOT Velocity Time Integral 21.5 cm MV Area PHT 4.2 cm??? Mitral E Point Velocity 110.9 cm/s Mitral A Point Velocity 69.1 cm/s Mitral E to A Ratio 1.6 MV Deceleration Time 180.3 ms MV E' Velocity 12.5 cm/s Mitral E to MV E' Ratio 8.9 TR Peak Velocity 206.6 cm/s TR Peak Gradient 17.1 mmHg Right Ventricular Systolic Press 21.3 mmHg FINDINGS Left Ventricle Mildly increased left ventricular wall thickness. Left ventricular cavity size normal. Normal left ventricular systolic function with no obvious regional wall motion abnormalities. Left ventricular ejection fraction is estimated at 55-60 %. Right Ventricle Moderate right ventricular dilatation. Right ventricular systolic pressure within normal limits. Right Atrium Normal right atrial size. Left Atrium Normal left atrial size. Mitral Valve Structurally normal mitral valve. Trace mitral regurgitation. Aortic Valve Trileaflet aortic valve. No aortic valve stenosis or regurgitation. Tricuspid Valve Structurally normal tricuspid valve. Mild tricuspid regurgitation. Pulmonic Valve Structurally normal pulmonic valve. Trace pulmonic regurgitation. Pericardium No pericardial effusion. Aorta Normal size aortic root and proximal ascending aorta. CONCLUSIONS Preserved LV size and systolic function Mildly enlarged right ventricle with normal systolic function Previewed by: Dr. Wilmer Ragland MD (Electronically Signed) Final Date: 07 August 2023 19:33
[2023-08-07] MEDS ORDERED: HYOSCYAMINE SULFATE 0.375 MG TAB.ER.12H PO SCH (21:00)
--- NOTE | 2023-08-07 23:01 | P.DS ---
Providers Date of admission: 08/05/23 14:25 Attending physician: Deirdre Esposito Consults: 08/05/23 14:25 Consult Physician Urgent Consulting Provider: Keaton Varner Consult Reason/Comments: rlq pain, vomiting Do you want consulting provider notified?: Yes 08/07/23 08:05 Consult Physician Routine Consulting Provider: Wilmer Ragland Consult Reason/Comments: Sinus Pauses Do you want consulting provider notified?: Yes, Notify in am Primary care physician: Stated None Hospital Course: Diagnoses: Biliary dyskinesia with ejection fraction of 28% versus chronic cholecystitis Acute gastroenteritis with nausea vomiting and right side abdominal pain secondary to above, improved with conservative management however patient eats outpatient follow-up Substance abuse with marijuana which could be contributing to the patient presentation Hepatomegaly with fatty infiltration of liver ultrasound Obesity with BMI of 30.1 Dehydration improving. Hospital course: Patient is a 33-year-old male without significant past medical history presents to ER with complaints of nausea vomiting and diarrhea. Patient has been having symptoms for the past 3 days. Patient is also complaining of right sided abdo singh pain. Patient removed by surgery team HIDA scan showing no acute cholecystitis but evidence of biliary dyskinesia with ejection fraction of 28% versus chronic cholecystitis Patient was treated symptomatically and a short interval improvement. He received normal saline, antiacids, narcotics and anti-emetics Patient today tolerated liquid diet and surgery team cleared him however we kept him to the evening and he tolerated the do not again with only minimal nausea which have diminished with medication. We confirmed with the patient and he feels comfortable going home for about however we told him about Dr. Ordaz recommendation for close outpatient follow-up for possible cholecystectomy and he verbalized understanding and acceptance. Patient denies any other symptoms. Patient feels comfortable to go home today. Patient is aware if he develops worsening or new symptoms to call 911 on come to emergency room with details provided and he verbalized understanding and acceptance Patient was cleared for discharge by surgery team. Problems and management plan were discussed with the patient and he verbalized understanding and acceptance Patient was found stable and can be discharged home in guarded prognosis however he needs follow-up as an outpatient. Patient was instructed to follow up with PCP within one week and patient agrees Patient was instructed to follow up with surgeon Dr. Ordaz 1 week after discharge and collections rep Dr. Snyder in 1-2 weeks after discharge and he is agreeable: Make an appointment Physical exam Gen: patient is a AAOx3, no distress CVS: S1-S2, RRR, no murmur Lungs: B/L CTA, no wheezing Abdomen: soft, no distention, no tenderness, positive bowel sounds Extremity: no leg edema or induration Time spent more than 35 minutes Patient Condition at Discharge: Stable Plan - Discharge Summary New Discharge Prescriptions: New Hyoscyamine Sulfate [Levbid] 0.75 mg PO HS #30 tab HYDROcodone/APAP 5-325MG [Pierron 5-325] 1 tab PO Q6HR PRN 3 Days #12 tab PRN Reason: Pain Omeprazole [PriLOSEC] 40 mg PO DAILY 30 Days #30 cap Ondansetron [Zofran] 4 mg PO Q8HR PRN 10 Days #30 tab PRN Reason: Nausea And Vomiting Discharge Medication List HYDROcodone/APAP 5-325MG [Pierron 5-325] 1 tab PO Q6HR PRN 3 Days #12 tab 08/07/23 [Rx] Hyoscyamine Sulfate [Levbid] 0.75 mg PO HS #30 tab 08/07/23 [Rx] Omeprazole [PriLOSEC] 40 mg PO DAILY 30 Days #30 cap 08/07/23 [Rx] Ondansetron [Zofran] 4 mg PO Q8HR PRN 10 Days #30 tab 08/07/23 [Rx] Follow up Appointment(s)/Referral(s): Fredy Mclain MD [Medical Doctor] - 10 Days (heart doctor) None,Stated [Primary Care Provider] - 1-2 days (please follow up the resuts of your heart echocardiogram ) Keaton Varner MD [STAFF PHYSICIAN] - 1 Week (please follow up for possible removal of your surgical removal of your gall bladder) Activity/Diet/Wound Care/Special Instructions: low fat diet activity is restricted till you see your doctor we recommend you call your health insurance provider to find a nearby primary care doctor , please call to make appointment in one week Discharge/Stand Alone Forms: Area PCPs Discharge Disposition: HOME SELF-CARE
== END 2023-08-07 22:13 | disposition home or self-care (01) ==
LOC: EC 08:16 → 6NMEDSUR 14:25 → OBSVTOIN 14:25 → INTOOBSV 14:25 → 6NMEDSUR 18:57 → UNDODISIN 08-07 22:13
PROVIDERS: ADMIT Internal Medicine; ATTEND Internal Medicine
DX: K52.9 Noninfective gastroenteritis and colitis, unspecified (principal); K76.0 Fatty (change of) liver, not elsewhere classified; K92.1 Melena; E88.89 Other specified metabolic disorders; I10 Essential (primary) hypertension; E83.42 Hypomagnesemia; F41.9 Anxiety disorder, unspecified; E86.0 Dehydration; F12.90 Cannabis use, unspecified, uncomplicated; F11.90 Opioid use, unspecified, uncomplicated; F17.200 Nicotine dependence, unspecified, uncomplicated; E66.9 Obesity, unspecified; Z68.30 Body mass index [BMI] 30.0-30.9, adult; Z79.899 Other long term (current) drug therapy
CPT/HCPCS: 96376 ×3; 96361 ×2; 96375 ×2; 96374; 99285; 36415; 93005; 93306; 80061; 80053; 80048; 84443; 82150; 83605; 83690; 83735; 84484; 85025 ×2; 81003; 80306; 87636; 76705; 74177; 78227; G0378 ×3; A9537; J2270 ×3; J2405 ×3; J2805; J1170; J3475; C9113 ×2; Q9967

== ENCOUNTER 2023-08-13 11:22 | Day surgery (SDC) | payer BC, OTHER ==
[~2023-08-13 11:22] MED LIST: ACETAMINOPHEN TAB 500 MG TAB PO PRN; HEPARIN SODIUM,PORCINE/PF 5,000 UNIT/0.5 ML SYRINGE SQ PRN; LACTATED RINGERS 1,000 ML IV SCH; ONDANSETRON 4 MG/2 ML VIAL IVP ONE; fentaNYL (PF) 50 MCG/ML 2 ML AMP IV PRN
[2023-08-13] MEDS ORDERED: DEXAMETHASONE SOD PHOSPHATE 4 MG/ML 1 ML VIAL IVP ONE (12:14)
[2023-08-13] MEDS ORDERED: NEOSTIGMINE 1 MG/ML 10 ML VIAL ONE (12:40)
[2023-08-13] MEDS ORDERED: KETAMINE HCL IN 0.9 % NACL 50 MG/5 ML SYRINGE ONE (12:40)
[2023-08-13] MEDS ORDERED: hydrALAZINE HCL 20 MG/ML 1 ML VIAL ONE (12:40)
[2023-08-13] MEDS ORDERED: GLYCOPYRROLATE 0.2 MG/ML 2 ML VIAL ONE (12:40)
[2023-08-13] MEDS ORDERED: fentaNYL (PF) 50 MCG/ML 2 ML AMP ONE (12:40)
[2023-08-13] MEDS ORDERED: SUCCINYLCHOLINE CHLORIDE 200 MG/10 ML VIAL IV ONE (12:40)
[2023-08-13] MEDS ORDERED: MIDAZOLAM 2 MG/2 ML VIAL ONE (12:40)
[2023-08-13] MEDS ORDERED: LIDOCAINE 1% INJ 10MG/ML (20 ML MDV) ONE (12:40)
[2023-08-13] MEDS ORDERED: HYDROmorphone (PF) 1 MG/ML ONE (12:40)
[2023-08-13] MEDS ORDERED: PROPOFOL 10 MG/ML 20 ML VIAL IV ONE (12:40)
[2023-08-13] MEDS ORDERED: ROCURONIUM 10 MG/ML (5 ML VIAL) IV ONE (12:40)
[2023-08-13] MEDS ORDERED: LIDOCAINE 1%-EPI 1:100,000 50 ML VIAL SQ ONE (13:06)
--- NOTE | 2023-08-13 13:17 | P.OP ---
Date of Procedure: 08/13/23 Preoperative Diagnosis: Biliary dyskinesia Postoperative Diagnosis: biliary dyskinesia Procedure(s) Performed: Laparoscopic cholecystectomy Anesthesia: BLADIMIR Surgeon: Keaton Varner Estimated Blood Loss (ml): 5 Pathology: other (Gallbladder) Condition: stable Disposition: PACU Description of Procedure: The patient was placed on the operating table. The patient received a general endotracheal tube anesthesia. The patients abdomen was prepped and draped in the usual sterile fashion. Through an infraumbilical stab incision, the fascia of the anterior abdominal wall was grasped with a pair of Kochers and then the Veress needle was placed in the peritoneal cavity. Position of the Veress needle was confirmed with positive drop test. The abdomen was then insufflated. After adequate insufflation, the 10 mm trocar was placed in the peritoneal cavity. Following this the laparoscope was placed in the peritoneal cavity. The patient was placed in the head-up, right side up position and then a 5 mm trocar was placed in the right lateral and right subcostal position under direct visualization. A 8 mm trocar was placed in the epigastric position. The gallbladder was grasped in the fundus and infundibulum. Traction on the gallbladder was placed in the lateral and the cephalad positions. The triangle of Calot was visualized.. The cystic duct was bluntly dissected until the union of the cystic duct and common bile duct was seen. A critical view of safety was achieved. The cystic duct was then divided and sealed with the Harmonic scissors. A PDS Endoloop was then placed throughout the cystic duct stump. The cystic artery divided and sealed with the Harmonic scissors. The gallbladder was then removed from the liver bed using Harmonic scissors. The gallbladder was then extracted through the epigastric port site. Operative field was checked for any bleeding spots and Harmonic scissors was used to coagulate the liver bed. The abdomen was irrigated. The trocars were removed. The skin was closed using interrupted 3-0 Vicryl suture. Dermabond dressing were applied. The patient tolerated the procedure well.
[2023-08-13] MEDS: HYDROmorphone 0.5 MG/0.5 ML SYRINGE IVP PRN ×3 (13:32→14:25)
[2023-08-13 13:46] VITALS: TEMP 97.2
[2023-08-13 14:05] VITALS: RESP 16
[2023-08-13] MEDS ORDERED: LACTATED RINGERS 1,000 ML IV ONE ×2 (14:15)
[2023-08-13 16:01] VITALS: BP 133/67; PULSE 95
== END 2023-08-13 16:19 | disposition home or self-care (01) ==
LOC: OR 11:22
PROVIDERS: ATTEND Surgery
DX: K81.1 Chronic cholecystitis (principal); F17.200 Nicotine dependence, unspecified, uncomplicated; F12.90 Cannabis use, unspecified, uncomplicated; K21.9 Gastro-esophageal reflux disease without esophagitis; Z86.59 Personal history of other mental and behavioral disorders; Z79.899 Other long term (current) drug therapy
CPT/HCPCS: 47562; J2250; J0330; J0360; J1100; J2710; J0690; J2405; J2001; J3010; J1170 ×2; J2704; J1644

== ENCOUNTER → 2023-08-29 | Outpatient (CLI) | payer OTHER ==
[2023-08-29 16:20] LABS: Basophils # (A) 0.07 X 10*3/uL (0.00-0.10); Basophils % (A) 0.9 %; Eosinophils # (A) 0.44 X 10*3/uL (0.04-0.35); Eosinophils % (A) 5.9 %; HGB 15.5 d/dL (13.0-17.0); Lymphocytes # (A) 1.33 X 10*3/uL (0.90-5.00); Lymphocytes % (A) 17.8 %; MCH 29.7 pg (27.0-32.0); MCHC 34.4 d/dL (32.0-37.0); MCV 86.2 FL (80.0-97.0); Mean Platelet Volume 10.4 FL (9.5-12.2); Monocytes # (A) 0.63 X 10*3/uL (0.20-1.00); Monocytes % (A) 8.4 %; NRBC Per 100 WBC 0 X 10*3/uL (0.00-0.01); Neutrophils # (A) 4.94 X 10*3/uL (1.80-7.70); Neutrophils % (A) 65.9 %; Platelet Count 236 X 10*3/uL (140-440); RBC 5.22 X 10*6/uL (4.40-5.60); RDW 12.8 % (11.5-14.5); WBC 7.49 X 10*3/uL (4.50-10.00)
== END | disposition home or self-care (01) ==
LOC: LABPAT 11:09
PROVIDERS: ATTEND Surgery
DX: Z01.812 Encounter for preprocedural laboratory examination (principal); K42.9 Umbilical hernia without obstruction or gangrene
CPT/HCPCS: 85025; 86850; 86900; 86901

== ENCOUNTER 2023-09-02 07:19 | Day surgery (SDC) | payer OTHER ==
[~2023-09-02 07:19] MED LIST changes: +DEXAMETHASONE SOD PHOSPHATE 4 MG/ML 1 ML VIAL IV ONE; +HYDROmorphone 0.5 MG/0.5 ML SYRINGE IVP PRN; +LIDOCAINE 1% (10MG/ML) FOR IV START INTRADERMA PRN; -fentaNYL (PF) 50 MCG/ML 2 ML AMP IV PRN
[2023-09-02 08:08] LABS: Glucose,Whole Blood 110 mg/dL (70-110)
[2023-09-02] MEDS ORDERED: MIDAZOLAM 2 MG/2 ML VIAL IVP ONE (08:45)
[2023-09-02] MEDS ORDERED: fentaNYL (PF) 50 MCG/ML 2 ML AMP ONE (09:42)
[2023-09-02] MEDS ORDERED: KETOROLAC 30 MG/ML 1 ML VIAL ONE (09:42)
[2023-09-02] MEDS ORDERED: DEXAMETHASONE SOD PHOSPHATE 4 MG/ML 1 ML VIAL ONE (09:42)
[2023-09-02] MEDS ORDERED: NEOSTIGMINE 1 MG/ML 10 ML VIAL ONE (09:42)
[2023-09-02] MEDS ORDERED: LABETALOL 5 MG/ML VIAL MDV ONE (09:42)
[2023-09-02] MEDS ORDERED: PROPOFOL 10 MG/ML 20 ML VIAL IV ONE (09:42)
[2023-09-02] MEDS ORDERED: SUCCINYLCHOLINE CHLORIDE 200 MG/10 ML VIAL IV ONE (09:42)
[2023-09-02] MEDS ORDERED: ROPIVACAINE 5 MG/ML 30 ML VIAL ONE (09:42)
[2023-09-02] MEDS ORDERED: GLYCOPYRROLATE 0.2 MG/ML 2 ML VIAL ONE (09:42)
[2023-09-02] MEDS ORDERED: LIDOCAINE 1% INJ 10MG/ML (20 ML MDV) ONE (09:42)
[2023-09-02] MEDS ORDERED: MIDAZOLAM 2 MG/2 ML VIAL ONE (09:42)
[2023-09-02] MEDS ORDERED: KETAMINE HCL IN 0.9 % NACL 50 MG/5 ML SYRINGE ONE (09:42)
[2023-09-02] MEDS ORDERED: ROCURONIUM 10 MG/ML (5 ML VIAL) IV ONE (09:42)
[2023-09-02] MEDS ORDERED: LACTATED RINGERS 1,000 ML IV ONE (10:00)
[2023-09-02] MEDS ORDERED: BUPIVACAINE (PF) 0.5% 30 ML VIAL SQ ONE (10:13)
--- NOTE | 2023-09-02 10:43 | P.OP ---
Date of Procedure: 09/02/23 Preoperative Diagnosis: Umbilical hernia Postoperative Diagnosis: Incarcerated umbilical hernia Procedure(s) Performed: Laparoscopic robotic repair of incarcerated umbilical hernia Partial omentectomy Transversus abdominis plane block Anesthesia: BLADIMIR Surgeon: Keaton Varner Estimated Blood Loss (ml): 5 Pathology: other (Incarcerated omentum) Condition: stable Disposition: PACU Description of Procedure: The patient was placed on the operating table in the supine position. He received general anesthesia. His abdomen was prepped and draped usual fashion. Using a 5 mm optical trocar under direct visualization the peritoneal cavity was entered in the left upper quadrant. The abdomen was then insufflated. The laparoscope was placed back into the perineal cavity. Next a 8 mm robotic trocar was placed in the left lower quadrant and a 12 mm robotic trocar was pl aced in the left lateral position. The original 5 mm trocar was exchanged for a 8 mm robotic trocar. A four-quadrant transverse subcostal block was then performed using 1% local Xylocaine. The patient's placed in the left side up position. And the patient was docked the robot. The umbilical hernia was visualized. Using hook cautery the peritoneum over the umbilical hernia was excised. Incarcerated omentum was dissected free sent to pathology. The fascial opening was repaired using 0V LOC suture. Next a piece of 11 cm round ventral light ST mesh was placed into the. Cavity and secured with 2 OV lock suture. The patient was undocked the robot. The needles were retrieved. The fascia of the 12 mm trocar site was closed with 0 Ethibond suture. Skin was closed interrupted 3-0 Monocryl suture. Dermabond dressings was applied. Patient top procedure well and was sent to recovery room stable condition.
[2023-09-02 11:08] VITALS: TEMP 97.9
[2023-09-02] MEDS: HYDROmorphone 0.5 MG/0.5 ML SYRINGE IVP PRN ×3 (11:11→11:23)
[2023-09-02] MEDS ORDERED: SODIUM CHLORIDE 0.9% 1,000 ML IV ONE ×2 (11:17)
[2023-09-02 12:21] VITALS: BP 138/81; PULSE 88; RESP 20
--- NOTE | 2023-09-02 14:12 | P.ANPRN ---
Procedure Note - Anesthesia - Nerve Block Performed Bilateral Rectus Abdominis Single Time Out Performed: Yes Date of Procedure: 09/02/23 Procedure Start Time: 08:45 Procedure Stop Time: 08:51 Location of Patient: PreOp Indication: Acute Post-Operative Pain, Requested by Surgeon Sedation Type: Sedate with meaningful contact maintained Preparation: Sterile Prep Position: Supine Needle Types: Pajunk Needle Gauge: 21 Ultrasound used to visualize needle placement: Yes Ultrasound used to observe medication spread: Yes Blood Aspirated: No Pain Paresthesia on Injection Noted: No Resistance on Injection: Normal Image Stored and Saved: Yes Events: Uneventful and Well Tolerated (ropi .5% 20cc plus dexamethasone 4mg given bilaterally)
== END 2023-09-02 13:15 | disposition home or self-care (01) ==
LOC: OR 07:19
PROVIDERS: ATTEND Surgery
DX: K42.0 Umbilical hernia with obstruction, without gangrene (principal); K81.1 Chronic cholecystitis; G89.18 Other acute postprocedural pain; F12.90 Cannabis use, unspecified, uncomplicated; F17.290 Nicotine dependence, other tobacco product, uncomplicated; Z90.49 Acquired absence of other specified parts of digestive tract; Z83.3 Family history of diabetes mellitus; Z98.890 Other specified postprocedural states
CPT/HCPCS: 49592; S2900; 64488; 88305

== ENCOUNTER 2023-09-06 10:49 | Emergency (ER) | payer OTHER ==
[2023-09-06 11:09] VITALS: BP 129/86; PULSE 79; RESP 18; TEMP 98.4
[2023-09-06] MEDS ORDERED: KETOROLAC 15 MG/ML 1 ML VIAL IVP STA (11:31)
[2023-09-06] MEDS ORDERED: SODIUM CHLORIDE 0.9% 1,000 ML IV STA (11:31)
[2023-09-06] MEDS ORDERED: MORPHINE SULFATE 2 MG/ML SYRINGE IVP STA (11:32)
[2023-09-06 11:49] LABS: Basophils % (A) 0 %; Eosinophils # (A) 0.5 k/uL (0-0.7); Eosinophils % (A) 7 %; HCT 43.7 % (39.0-53.0); HGB 15.6 gm/dL (13.0-17.5); Lymphocytes # (A) 1.2 k/uL (1.0-4.8); Lymphocytes % (A) 16 %; MCH 30.3 pg (25.0-35.0); MCHC 35.7 g/dL (31.0-37.0); MCV 84.9 fL (80.0-100.0); Monocytes # (A) 0.6 k/uL (0-1.0); Monocytes % (A) 8 %; Neutrophils # (A) 5.1 k/uL (1.3-7.7); Neutrophils % (A) 66 %; Platelet Count 198 k/uL (150-450); RBC 5.14 m/uL (4.30-5.90); RDW 13.4 % (11.5-15.5); WBC 7.7 k/uL (3.8-10.6)
[2023-09-06 12:13] LABS: ALT 67 U/L (4-49); AST 30 U/L (17-59); African American GFR (CKD) >90 (>60 ml/min/1.73 sqM); Albumin 4.2 g/dL (3.5-5.0); Alkaline Phosphatase 56 U/L (38-126); Anion Gap 10 mmol/L; Blood Urea Nitrogen 14 mg/dL (9-20); Calcium 9.4 mg/dL (8.4-10.2); Carbon Dioxide 24 mmol/L (22-30); Chloride 104 mmol/L (98-107); Glucose 97 mg/dL (74-99); Non-African American GFR(CKD) >90 (>60 ml/min/1.73 sqM); Potassium 4.2 mmol/L (3.5-5.1); Sodium 138 mmol/L (137-145); Total Bilirubin 0.5 mg/dL (0.2-1.3)
--- NOTE | 2023-09-06 12:16 | ED ---
Abdominal Pain HPI - General Chief Complaint: Abdominal Pain Stated Complaint: Post Op Comp & R Side Pain Time Seen by Provider: 09/06/23 11:06 Source: patient, RN notes reviewed Mode of arrival: ambulatory Limitations: no limitations - History of Present Illness Initial Comments: This is a 33-year-old male who presents to the emergency department for problems with his incision leaking on the left side and right lower quadrant pain. Patient had a laparoscopic umbilical hernia repair 4 days ago. States that he took the bandage off of one of the incisions and it seemed to be open and draining a significant amount. Denies any pain associated with this. However, states that he has also now started to develop pain to the right lower quadrant. He went to urgent care and they placed a new bandage over the open incision, however it keeps leaking. He was also advised to come here for evaluation of his appendix. His follow up appointment with Dr. Varner is scheduled for 09/11. MD Complaint: abdominal pain - Related Data Previous Rx's Medication Instructions Recorded Hyoscyamine Sulfate [Levbid] 0.75 mg PO HS #30 tab 08/07/23 Omeprazole [PriLOSEC] 40 mg PO DAILY 30 Days #30 cap 08/07/23 Ondansetron [Zofran] 4 mg PO Q8HR PRN 10 Days #30 tab 08/07/23 Acetaminophen Tab [Tylenol] 650 mg PO Q6H #30 tab 08/13/23 Acetaminophen Tab [Tylenol] 650 mg PO Q6H #30 tab 09/02/23 Docusate [Colace] 100 mg PO BID #20 capsule 09/02/23 Ibuprofen [Motrin] 600 mg PO Q6HR PRN #40 tab 09/02/23 oxyCODONE HCL [OxyIR] 5 mg PO Q6H PRN 3 Days #10 tab 09/02/23 Allergies Allergy/AdvReac Type Severity Reaction Status Date / Time adhesive tape Allergy Rash/Hives Verified 09/06/23 10:57 Review of Systems ROS Statement: Those systems with pertinent positive or pertinent negative responses have been documented in the HPI. ROS Other: All systems not noted in ROS Statement are negative. Past Medical History Past Medical History: GERD/Reflux Additional Past Medical History / Comment(s): frequent abdominal pain, N/V, hx. of umbilical hernia, hx of kidney stones History of Any Multi-Drug Resistant Organisms: None Reported Past Surgical History: Cholecystectomy, Hernia Repair Additional Past Surgical History / Comment(s): as a baby, Hernia repair. Past Anesthesia/Blood Transfusion Reactions: No Reported Reaction Additional Past Anesthesia/Blood Transfusion Reaction / Comment(s): States had a cardiology work-up. Dr. Ragland saw this patient. Report - Sinus pauses, asymptomatic, suspect vagal in etiology. See EKG- EMR Past Psychological History: No Psychological Hx Reported Smoking Status: Current every day smoker, Vaper Past Alcohol Use History: Occasional Past Drug Use History: Marijuana - Past Family History Mother Family Medical History: No Reported History General Exam Limitations: no limitations General appearance: alert, in no apparent distress Head exam: Present: atraumatic, normocephalic, normal inspection Respiratory exam: Present: normal lung sounds bilaterally. Absent: respiratory distress, wheezes, rales, rhonchi, stridor Cardiovascular Exam: Present: regular rate, normal rhythm, normal heart sounds. Absent: systolic murmur, diastolic murmur, rubs, gallop, clicks GI/Abdominal exam: Present: soft, tenderness (RLQ), other (2cm incision on the left side with minor active clear drainage. No tenderness or surrounding erythema). Absent: distended Neurological exam: Present: alert, oriented X3, CN II-XII intact Psychiatric exam: Present: normal affect, normal mood Course Vital Signs 09/06/23 10:53 Temperature 98.4 F Pulse Rate 79 Respiratory 18 Rate Blood Pressure 129/86 O2 Sat by Pulse 98 Oximetry Medical Decision Making - Medical Decision Making This is a 33-year-old male who presents to the emergency department for abdominal pain. Was pt. sent in by a medical professional or institution? @ -Urgent care Did you speak to anyone other than the patient for history? @ -No Did you review nursing and triage notes? @ -Yes, and I agree, it is accurate with regards to the patient's symptoms. Were old charts reviewed? @ -No Differential Diagnosis? @ -Differential Abdominal Pain Men: Appendicitis, cholecystitis, diverticulosis, ischemic bowel, pancreatitis, hepatitis, UTI, gastroenteritis, AAA, incarcerated hernia, bowel obstruction, constipation, inflammatory bowel, hepatitis, peptic ulcer disease, splenic infarction, perforated viscus, testicular torsion, this is not meant to be an all-inclusive list EKG interpreted by me (3pts min.)? @ -Not obtained X-rays interpreted by me (1pt min.)? @ -Not obtained CT interpreted by me (1pt min.)? @ -CT scan of the abdomen and pelvis obtained. My interpretation identifies no evidence of bowel wall thickening or free air. U/S interpreted by me (1pt. min.)? @ -Not obtained What testing was considered but not performed? (CT, X-rays, U/S, labs)? Why? @ -None What meds were considered but not given? Why? @ -None Did you discuss the management of the patient with other professionals? @ -No Did you reconcile home meds? @ -No Was smoking cessation discussed for >3mins.? @ -No Was critical care preformed (if so, how long)? @ -No Were there social determinants of health that impacted care today? How? (Homel essness, low income, unemployed, alcoholism, drug addiction, transportation, low edu. Level, literacy, decrease access to med. care, senior care, rehab)? @ -No Was there de-escalation of care discussed even if they declined? (Discuss DNR or withdrawal of care, Hospice)? @ -No What co-morbidities impacted this encounter? (DM, HTN, Smoking, COPD, CAD, Cancer, CVA, Hep., AIDS, mental health diagnosis, sleep apnea, morbid obesity)? @ -None Was patient admitted / discharged? @ -Discharged. Lab work obtained and found to be nonactionable. Urinalysis negative for signs of infection. Computed tomography scan of the abdomen and pelvis obtained revealing no acute process including no evidence of an appendicitis. Symptoms were well controlled in the emergency department. Patient did have a bit of wound dehiscence to the bottom incision. However, this was not gaping and was only draining serous fluid. There was no surrounding erythema or tenderness to suggest developing infection. Advised that this is expected with healing and not of concern at this time. Discussed that he will need to change his bandages more than normal to manage the leaking. Otherwise advised to follow up with Dr. Varner as scheduled on 09/11. He can alternate with ibuprofen and Tylenol as needed for pain relief. Undiagnosed new problem with uncertain prognosis? @ -None Drug Therapy requiring intensive monitoring for toxicity (Heparin, Nitro, Insulin, Cardizem)? @ -None Were any procedures done? @ -None Diagnosis/symptom? @ -Right lower quadrant pain, wound dehiscence Acute, or Chronic, or Acute on Chronic? @ -Acute Uncomplicated (without systemic symptoms) or Complicated (systemic symptoms)? @ -Uncomplicated Side effects of treatment? @ -None Exacerbation, Progression, or Severe Exacerbation] @ -Not applicable Poses a threat to life or bodily function? @ -No Return precautions reviewed in depth, the patient is instructed to return to the emergency department with any new, worsening, or concerning symptoms. Patient verbalized understanding. This case was discussed in detail with the attending ED physician, Dr. Olvera. Presentation, findings, and treatment plan discussed in detail as well. - Lab Data Result diagrams: 09/06/23 11:09/06/23: Lab Results 09/06/23 09/06/23 09/06/23 Range/Units 11:33 11: 11:33 WBC 7.7 (3.8-10.6) k/uL RBC 5.14 (4.30-5.90) m/uL Hgb 15.6 (13.0-17.5) gm/dL Hct 43.7 (39.0-53.0) % MCV 84.9 (80.0-100.0) fL MCH 30.3 (25.0-35.0) pg MCHC 35.7 (31.0-37.0) g/dL RDW 13.4 (11.5-15.5) % Plt Count 198 (150-450) k/uL MPV 8.0 Neutrophils % 66 % Lymphocytes % 16 % Monocytes % 8 % Eosinophils % 7 % Basophils % 0 % Neutrophils # 5.1 (1.3-7.7) k/uL Lymphocytes # 1.2 (1.0-4.8) k/uL Monocytes # 0.6 (0-1.0) k/uL Eosinophils # 0.5 (0-0.7) k/uL Basophils # 0.0 (0-0.2) k/uL Sodium 138 (137-145) mmol/L Potassium 4.2 (3.5-5.1) mmol/L Chloride 104 (98-107) mmol/L Carbon Dioxide 24 (22-30) mmol/L Anion Gap 10 mmol/L BUN 14 (9-20) mg/dL Creatinine 0.92 (0.66-1.25) mg/dL Est GFR (CKD-EPI)AfAm >90 (>60 ml/min/1.73 sqM) Est GFR (CKD-EPI)NonAf >90 (>60 ml/min/1.73 sqM) Glucose 97 (74-99) mg/dL Plasma Lactic Acid Master (0.7-2.0) mmol/L Calcium 9.4 (8.4-10.2) mg/dL Total Bilirubin 0.5 (0.2-1.3) mg/dL AST 30 (17-59) U/L ALT 67 H (4-49) U/L Alkaline Phosphatase 56 (38-126) U/L Total Protein 7.0 (6.3-8.2) g/dL Albumin 4.2 (3.5-5.0) g/dL Urine Color Colorless Urine Appearance Clear (Clear) Urine pH 7.0 (5.0-8.0) Ur Specific [place] 1.042 H (1.001-1.035) Urine Protein Negative (Negative) Urine Glucose (UA) Negative (Negative) Urine Ketones Negative (Negative) Urine Blood Negative (Negative) Urine Nitrite Negative (Negative) Urine Bilirubin Negative (Negative) Urine Urobilinogen <2.0 (<2.0) mg/dL Ur Leukocyte Esterase Negative (Negative) 09/06/23 Range/Units 11:33 WBC (3.8-10.6) k/uL RBC (4.30-5.90) m/uL Hgb (13.0-17.5) gm/dL Hct (39.0-53.0) % MCV (80.0-100.0) fL MCH (25.0-35.0) pg MCHC (31.0-37.0) g/dL RDW (11.5-15.5) % Plt Count (150-450) k/uL MPV Neutrophils % % Lymphocytes % % Monocytes % % Eosinophils % % Basophils % % Neutrophils # (1.3-7.7) k/uL Lymphocytes # (1.0-4.8) k/uL Monocytes # (0-1.0) k/uL Eosinophils # (0-0.7) k/uL Basophils # (0-0.2) k/uL Sodium (137-145) mmol/L Potassium (3.5-5.1) mmol/L Chloride (98-107) mmol/L Carbon Dioxide (22-30) mmol/L Anion Gap mmol/L BUN (9-20) mg/dL Creatinine (0.66-1.25) mg/dL Est GFR (CKD-EPI)AfAm (>60 ml/min/1.73 sqM) Est GFR (CKD-EPI)NonAf (>60 ml/min/1.73 sqM) Glucose (74-99) mg/dL Plasma Lactic Acid Master 0.6 L (0.7-2.0) mmol/L Calcium (8.4-10.2) mg/dL Total Bilirubin (0.2-1.3) mg/dL AST (17-59) U/L ALT (4-49) U/L Alkaline Phosphatase (38-126) U/L Total Protein (6.3-8.2) g/dL Albumin (3.5-5.0) g/dL Urine Color Urine Appearance (Clear) Urine pH (5.0-8.0) Ur Specific [place] (1.001-1.035) Urine Protein (Negative) Urine Glucose (UA) (Negative) Urine Ketones (Negative) Urine Blood (Negative) Urine Nitrite (Negative) Urine Bilirubin (Negative) Urine Urobilinogen (<2.0) mg/dL Ur Leukocyte Esterase (Negative) - Radiology Data Radiology results: report reviewed, image reviewed Disposition Clinical Impression: Right sided abdominal pain, Abdominal wound dehiscence Disposition: HOME SELF-CARE Instructions (If sedation given, give patient instructions): Abdominal Pain (ED), Wound Dehiscence (ED) Additional Instructions: Return to the emergency department with any new, worsening, or concerning symptoms. Alternate with ibuprofen and Tylenol as needed for pain relief. You can keep antibiotic ointment on the incision to reduce the risk of infection. You will need to change the bandages regularly due to the drainage. Follow-up with Dr. Varner as scheduled. Is patient prescribed a controlled substance at d/c from ED?: No Referrals: Maddy Ramos MD [Primary Care Provider] - 1-2 days
--- NOTE | 2023-09-06 12:22 | CT ---
EXAMINATION TYPE: CT abdomen pelvis w con CT DLP: 1407.2 mGycm, Automated exposure control for dose reduction was used. DATE OF EXAM: 09/06/2023 11:59 AM COMPARISON: 08/05/2023 CLINICAL INDICATION:Male, 33 years old with history of RLQ abdominal pain; RLQ pain, recent hernia brock rgery TECHNIQUE: Axial CT of the ;CT abdomen pelvis w con;Sagittal and coronal reformats were created on a separate workstation. Contrast used:100 mL of Isovue 300 with IV Contrast, (none if empty) Oral contrast used: without Oral Contrast (none if empty) FINDINGS: LOWER CHEST: Unremarkable ABDOMEN LIVER: Diffusely hypoattenuating parenchyma. GALLBLADDER AND BILE DUCTS: The gallbladder is surgically absent. PANCREAS: Unremarkable. SPLEEN: Unremarkable. ADRENAL GLANDS: Unremarkable. KIDNEYS AND URETERS: No evidence of hydronephrosis or renal calculus. The ureters are unremarkable. PELVIS BLADDER: Unremarkable REPRODUCTIVE: Unremarkable. ABDOMEN & PELVIS STOMACH AND BOWEL: No evidence of bowel obstruction. Appendix is visualized and felt to be within nor mal limits. PERITONEUM/RETROPERITONEUM: No evidence of pneumoperitoneum or free fluid. VASCULATURE: No evidence of aortic aneurysm. MUSCULOSKELETAL: No acute osseous abnormalities LYMPH NODES: No gross evidence for lymphadenopathy. SOFT TISSUE/ABDOMINAL WALL: New post surgical changes around the umbilicus with some fat stranding wh ich likely represents postsurgical change. No evidence for inguinal or umbilical hernia. IMPRESSION: 1. No evidence for acute right lower quadrant process. Appendix is normal. No obstructive uropathy. No evidence for bowel obstruction. There is postsurgical changes around the umbilicus which are new. 2. Hepatic steatosis. 3. Indeterminate right hepatic dome area of low density given patient's age and likely a benign etio logy could represent a adenoma versus focal nodular hyperplasia.
[2023-09-06 12:49] LABS: Appearance,Urine Clear (Clear); Bilirubin,Urine Negative (Negative); Blood,Urine Negative (Negative); Color,Urine Colorless; Glucose,Urine (UA) Negative (Negative); Ketones,Urine Negative (Negative); Leukocyte Esterase,Urine Negative (Negative); Nitrite,Urine Negative (Negative); Protein,Urine Negative (Negative); Specific Gravity,Urine 1.042 (1.001-1.035); Urobilinogen,Urine <2.0 mg/dL (<2.0)
[2023-09-06] MEDS ORDERED: BACITRACIN OINT 1 EACH PACKET TOPICAL ONE (13:07)
[2023-09-06] MEDS ORDERED: ACET/COD 300 MG/30 MG STARTER PACK 6 TAB BTL PO STA (13:09)
== END 2023-09-06 14:30 | disposition home or self-care (01) ==
LOC: EC 10:49
DX: T81.30XA Disruption of wound, unspecified, initial encounter (principal); F17.290 Nicotine dependence, other tobacco product, uncomplicated; F12.90 Cannabis use, unspecified, uncomplicated; Z91.09 Other allergy status, other than to drugs and biological substances; Z90.49 Acquired absence of other specified parts of digestive tract
CPT/HCPCS: 99284; 96374; 96375; 96361; 36415; 80053; 83605; 85025; 81003; 74177; J2270; J1885; Q9967

== ENCOUNTER 2023-11-11 10:30 | Observation (INO) | payer OTHER ==
[2023-11-11 11:36] LABS: Basophils # (A) 0.1 k/uL (0-0.2); Basophils % (A) 1 %; Eosinophils # (A) 0.2 k/uL (0-0.7); Eosinophils % (A) 2 %; HCT 49.3 % (39.0-53.0); HGB 17.6 gm/dL (13.0-17.5); Lymphocytes # (A) 1.6 k/uL (1.0-4.8); Lymphocytes % (A) 17 %; MCH 31.1 pg (25.0-35.0); MCHC 35.8 g/dL (31.0-37.0); MCV 87.1 fL (80.0-100.0); Mean Platelet Volume 7.7; Monocytes # (A) 0.5 k/uL (0-1.0); Monocytes % (A) 5 %; Neutrophils # (A) 6.9 k/uL (1.3-7.7); Neutrophils % (A) 74 %; Platelet Count 278 k/uL (150-450); RBC 5.66 m/uL (4.30-5.90); RDW 13.2 % (11.5-15.5); WBC 9.4 k/uL (3.8-10.6)
[2023-11-11 11:44] LABS: Partial Thromboplastin Time 24.1 sec (22.0-30.0)
[2023-11-11 12:03] LABS: ALT 110 U/L (4-49); AST 44 U/L (17-59); African American GFR (CKD) >90 (>60 ml/min/1.73 sqM); Albumin 4.9 g/dL (3.5-5.0); Alkaline Phosphatase 71 U/L (38-126); Anion Gap 11 mmol/L; Blood Urea Nitrogen 12 mg/dL (9-20); Calcium 9.9 mg/dL (8.4-10.2); Carbon Dioxide 22 mmol/L (22-30); Chloride 106 mmol/L (98-107); Glucose 114 mg/dL (74-99); Non-African American GFR(CKD) >90 (>60 ml/min/1.73 sqM); Potassium 4.8 mmol/L (3.5-5.1); Sodium 139 mmol/L (137-145); Total Bilirubin 0.7 mg/dL (0.2-1.3); Total Protein 8.3 g/dL (6.3-8.2)
--- NOTE | 2023-11-11 12:52 | ED ---
General Adult HPI - General Chief complaint: GI Bleed Stated complaint: GI Bleed/abd pain Time Seen by Provider: 11/11/23 12:35 Source: patient, RN notes reviewed, old records reviewed Mode of arrival: ambulatory Limitations: no limitations - History of Present Illness Initial comments: 33-year-old male who presents emergency Department stating for the last 6 months she's had a little bit of blood has a bowel movement. Patient states last 24 hours she has had nothing but blood when he goes to the bathroom he states he's been going quite often. Patient states she also always has diarrhea. Patient denies ever having a colonoscopy in the past per patient denies being on blood thinners. Patient states she has quite a bit of lower abdominal pain just before he needs to have all movement. Patient denies any vomiting or nausea. Patient denies any fever chills. Patient denies any chest pain difficulty breathing shortest breath. - Related Data Previous Rx's Medication Instructions Recorded Hyoscyamine Sulfate [Levbid] 0.75 mg PO HS #30 tab 08/07/23 Omeprazole [PriLOSEC] 40 mg PO DAILY 30 Days #30 cap 08/07/23 Ondansetron [Zofran] 4 mg PO Q8HR PRN 10 Days #30 tab 08/07/23 Acetaminophen Tab [Tylenol] 650 mg PO Q6H #30 tab 08/13/23 Acetaminophen Tab [Tylenol] 650 mg PO Q6H #30 tab 09/02/23 Docusate [Colace] 100 mg PO BID #20 capsule 09/02/23 Ibuprofen [Motrin] 600 mg PO Q6HR PRN #40 tab 09/02/23 oxyCODONE HCL [OxyIR] 5 mg PO Q6H PRN 3 Days #10 tab 09/02/23 Allergies Allergy/AdvReac Type Severity Reaction Status Date / Time adhesive tape Allergy Rash/Hives Verified 11/11/23 10:51 Review of Systems ROS Statement: Those systems with pertinent positive or pertinent negative responses have been documented in the HPI. ROS Other: All systems not noted in ROS Statement are negative. Past Medical History Past Medical History: GERD/Reflux Additional Past Medical History / Comment(s): frequent abdominal pain, N/V, hx. of umbilical hernia, hx of kidney stones History of Any Multi-Drug Resistant Organisms: None Reported Past Surgical History: Cholecystectomy, Hernia Repair Additional Past Surgical History / Comment(s): as a baby, Hernia repair. Past Anesthesia/Blood Transfusion Reactions: No Reported Reaction Additional Past Anesthesia/Blood Transfusion Reaction / Comment(s): States had a cardiology work-up. Dr. Ragland saw this patient. Report - Sinus pauses, asymptomatic, suspect vagal in etiology. See EKG- EMR Past Psychological History: No Psychological Hx Reported Smoking Status: Current every day smoker, Vaper Past Alcohol Use History: Occasional Past Drug Use History: Marijuana - Past Family History Mother Family Medical History: No Reported History General Exam - General Exam Comments Initial Comments: GENERAL: Patient is well-developed and well-nourished. Patient is nontoxic and well- hydrated and is in no acute distress. ENT: Neck is soft and supple. No significant lymphadenopathy is noted. Oropharynx is clear. Moist mucous membranes. Neck has full range of motion without eliciting any pain. EYES: The sclera were anicteric and conjunctiva were pink and moist. Extraocular movements were intact and pupils were equal round and reactive to light. Eyelids were unremarkable. PULMONARY: Unlabored respirations. Good breath sounds bilaterally. No audible rales rhonchi or wheezing was noted. CARDIOVASCULAR: There is a regular rate and rhythm without any murmurs gallops or rubs. ABDOMEN: mild lower abdominal tenderness SKIN: Skin is clear with no lesions or rashes and otherwise unremarkable. NEUROLOGIC: Patient is alert and oriented x3. Cranial nerves II through XII are grossly intact. Motor and sensory are also intact. Normal speech, volume and content. Symmetrical smile. MUSCULOSKELETAL: Normal extremities with adequate strength and full range of motion. No lower extremity swelling or edema. No calf tenderness. LYMPHATICS: No significant lymphadenopathy is noted PSYCHIATRIC: Normal psychiatric evaluation. Limitations: no limitations Course Vital Signs 11/11/23 11/11/23 10:49 12:38 Temperature 98.2 F Pulse Rate 122 H 82 Respiratory 20 18 Rate Blood Pressure 151/96 121/75 O2 Sat by Pulse 98 100 Oximetry Medical Decision Making - Medical Decision Making Was pt. sent in by a medical professional or institution (, PA, [employer], urgent care, hospital, or [place] health care facility...) When possible be specific @ -No Did you speak to anyone other than the patient for history (EMS, parent, family, police, friend...)? What history was obtained from this source @ -No Did you review nursing and triage notes (agree or disagree)? Why? @ -I reviewed and agree with nursing and triage notes Were old charts reviewed (outside hosp., previous admission, EMS record, old EKG, old radiological studies, urgent care reports/EKG's, [place] health care facility records)? Report findings @ -No old charts were reviewed Differential Diagnosis (chest pain, altered mental status, abdominal pain women, abdominal pain men, vaginal bleeding, weakness, fever, dyspnea, syncope, headache, dizziness, GI bleed, back pain, seizure, CVA, palpatations, mental health, musculoskeletal)? @ -Differential GI Bleed: Esophageal varices, aortoenteric fistula, Lakshmi-Lowe, gastritis, peptic ulcer disease, diverticulosis, inflammatory bowel disease, hemorrhoids, fissure, colitis, malignancy, Meckels diverticulum, this is not meant to be an all- inclusive list. EKG interpreted by me (3pts min.). @ -As above X-rays interpreted by me (1pt min.). @ -None done CT interpreted by me (1pt min.). @ -None done U/S interpreted by me (1pt. min.). @ -None done What testing was considered but not performed or refused? (CT, X-rays, U/S, labs)? Why? @ -None What meds were considered but not given or refused? Why? @ -None Did you discuss the management of the patient with other professionals (professionals i.e. , PA, [employer], lab, RT, psych nurse, psychosocial rehabilitation counselor, lathe hand, teacher, senior grants officer, pillowcase cutter)? Give summary @ -With Dr. Bradford he agreed to admit the patient and the patient consult the GI Was smoking cessation discussed for >3mins.? @ -No Was critical care preformed (if so, how long)? @ -No Were there social determinants of health that impacted care today? How? (Homelessness, low income, unemployed, alcoholism, drug addiction, transportation, low edu. Level, literacy, decrease access to med. care, longterm, rehab)? @ -No Was there de-escalation of care discussed even if they declined (Discuss DNR or withdrawal of care, Hospice)? DNR status @ -No What co-morbidities impacted this encounter? (DM, HTN, Smoking, COPD, CAD, Cancer, CVA, ARF, Chemo, Hep., AIDS, mental health diagnosis, sleep apnea, morbid obesity)? @ -None Was patient admitted / discharged? Hospital course, mention meds given and route, prescriptions, significant lab abnormalities, going to OR and other pertinent info. @ - Patient's hemoglobin was stable I spoke with the patient he didn't feel comfortable going home because of the amount of blood he was bleeding yesterday and stated it's been ongoing and he has been unable to get follow-up so he wanted the seen by GI. Undiagnosed new problem with uncertain prognosis? @ -No Drug Therapy requiring intensive monitoring for toxicity (Heparin, Nitro, Insulin, Cardizem)? @ -No Were any procedures done? @ -No Diagnosis/symptom? @ -GI bleed Acute, or Chronic, or Acute on Chronic? @ -Acute Uncomplicated (without systemic symptoms) or Complicated (systemic symptoms)? @ -Complicated Side effects of treatment? @ -No Exacerbation, Progression, or Severe Exacerbation? @ -No Poses a threat to life or bodily function? How? (Chest pain, USA, SD, pneumonia, PE, COPD, DKA, ARF, appy, cholecystitis, CVA, Diverticulitis, Homicidal, Suicidal, threat to staff... and all critical care pts) @ -No - Lab Data Result diagrams: 11/11/23 11:15 11/11/23 11:15 Lab Results 11/11/23 11/11/23 11/11/23 Range/Units 11:15 11:15 11:15 WBC 9.4 (3.8-10.6) k/uL RBC 5.66 (4.30-5.90) m/uL Hgb 17.6 H (13.0-17.5) gm/dL Hct 49.3 (39.0-53.0) % MCV 87.1 (80.0-100.0) fL MCH 31.1 (25.0-35.0) pg MCHC 35.8 (31.0-37.0) g/dL RDW 13.2 (11.5-15.5) % Plt Count 278 (150-450) k/uL MPV 7.7 Neutrophils % 74 % Lymphocytes % 17 % Monocytes % 5 % Eosinophils % 2 % Basophils % 1 % Neutrophils # 6.9 (1.3-7.7) k/uL Lymphocytes # 1.6 (1.0-4.8) k/uL Monocytes # 0.5 (0-1.0) k/uL Eosinophils # 0.2 (0-0.7) k/uL Basophils # 0.1 (0-0.2) k/uL PT 11.0 (10.0-12.5) sec INR 1.0 (<1.2) APTT 24.1 (22.0-30.0) sec Sodium 139 (137-145) mmol/L Potassium 4.8 (3.5-5.1) mmol/L Chloride 106 (98-107) mmol/L Carbon Dioxide 22 (22-30) mmol/L Anion Gap 11 mmol/L BUN 12 (9-20) mg/dL Creatinine 0.92 (0.66-1.25) mg/dL Est GFR (CKD-EPI)AfAm >90 (>60 ml/min/1.73 sqM) Est GFR (CKD-EPI)NonAf >90 (>60 ml/min/1.73 sqM) Glucose 114 H (74-99) mg/dL Plasma Lactic Acid Master (0.7-2.0) mmol/L Calcium 9.9 (8.4-10.2) mg/dL Total Bilirubin 0.7 (0.2-1.3) mg/dL AST 44 (17-59) U/L ALT 110 H (4-49) U/L Alkaline Phosphatase 71 (38-126) U/L Total Protein 8.3 H (6.3-8.2) g/dL Albumin 4.9 (3.5-5.0) g/dL 11/11/23 Range/Units 11:15 WBC (3.8-10.6) k/uL RBC (4.30-5.90) m/uL Hgb (13.0-17.5) gm/dL Hct (39.0-53.0) % MCV (80.0-100.0) fL MCH (25.0-35.0) pg MCHC (31.0-37.0) g/dL RDW (11.5-15.5) % Plt Count (150-450) k/uL MPV Neutrophils % % Lymphocytes % % Monocytes % % Eosinophils % % Basophils % % Neutrophils # (1.3-7.7) k/uL Lymphocytes # (1.0-4.8) k/uL Monocytes # (0-1.0) k/uL Eosinophils # (0-0.7) k/uL Basophils # (0-0.2) k/uL PT (10.0-12.5) sec INR (<1.2) APTT (22.0-30.0) sec Sodium (137-145) mmol/L Potassium (3.5-5.1) mmol/L Chloride (98-107) mmol/L Carbon Dioxide (22-30) mmol/L Anion Gap mmol/L BUN (9-20) mg/dL Creatinine (0.66-1.25) mg/dL Est GFR (CKD-EPI)AfAm (>60 ml/min/1.73 sqM) Est GFR (CKD-EPI)NonAf (>60 ml/min/1.73 sqM) Glucose (74-99) mg/dL Plasma Lactic Acid Master 1.5 (0.7-2.0) mmol/L Calcium (8.4-10.2) mg/dL Total Bilirubin (0.2-1.3) mg/dL AST (17-59) U/L ALT (4-49) U/L Alkaline Phosphatase (38-126) U/L Total Protein (6.3-8.2) g/dL Albumin (3.5-5.0) g/dL Disposition Clinical Impression: Lower gastrointestinal hemorrhage Disposition: ADMITTED IP TO THIS HOSP Referrals: Maddy Ramos MD [Primary Care Provider] - 1-2 days Time of Disposition: 13:39
[2023-11-11] MEDS ORDERED: SODIUM CHLORIDE 0.9% 1,000 ML IV ONE (13:40)
[2023-11-11 14:34] LABS: Basophils # (A) 0.1 k/uL (0-0.2); Basophils % (A) 1 %; Eosinophils # (A) 0.2 k/uL (0-0.7); Eosinophils % (A) 2 %; HCT 45.2 % (39.0-53.0); Lymphocytes # (A) 1.5 k/uL (1.0-4.8); Lymphocytes % (A) 20 %; MCH 30.8 pg (25.0-35.0); MCHC 35.4 g/dL (31.0-37.0); MCV 87.1 fL (80.0-100.0); Mean Platelet Volume 7.7; Monocytes # (A) 0.4 k/uL (0-1.0); Monocytes % (A) 6 %; Neutrophils # (A) 5.2 k/uL (1.3-7.7); Neutrophils % (A) 70 %; Platelet Count 241 k/uL (150-450); RBC 5.19 m/uL (4.30-5.90); RDW 13.3 % (11.5-15.5); WBC 7.5 k/uL (3.8-10.6)
[2023-11-11] MEDS: PANTOPRAZOLE 40 MG TABLET PO SCH (21:22)
[2023-11-11] MEDS: HYDROcodone/APAP 5-325MG 1 EACH TAB PO PRN (23:30)
--- NOTE | 2023-11-12 01:43 | HP ---
HISTORY AND PHYSICAL HISTORY OF PRESENT ILLNESS: Admitted with acute abdominal pain, GI bleeding, has large amounts of blood at home. Abdominopelvic CAT scan are pending. He is 33-year-old had many large episodes of bleeding for 6 months with a large amount of blood recently, needs a colonoscopy. He is admitted for GI consultation. Denies any nausea or vomiting. Denies any fever or chills. MEDICATIONS: Reviewed. ALLERGIES: To adhesive tape. REVIEW OF SYSTEMS: A 14-point review of systems is negative except for possible psychotic behavior, GERD, alcohol withdrawal. PAST SURGICAL HISTORY: Hernia repair, cholecystectomy, cardiac workup. Dr. Ragland saw this patient in the past. SOCIAL HISTORY: Current everyday smoker. PHYSICAL EXAMINATION: GENERAL: Well hydrated, well developed. HEENT: Normocephalic, atraumatic. Ophthalmologic, pupils equal, round, and reactive. CARDIOVASCULAR: S1, S2. LUNGS: Rales at the bases. HEMATOLOGY: Negative for Homans. PSYCH: Fair mood and affect. NEUROLOGIC: Alert and oriented times x3. Moderate tremor. VITAL SIGNS: O2 98 to 100% on room air. Pulse rate is 122/82, respiratory rate 18 to 20, blood pressure is 120s to 150s over 70s to 90s, temperature 98.2. ASSESSMENT: GI bleed, acute abdominal pain, possibly EGD will have to be done. PROGNOSIS: Guarded. Please see further orders. Wait for GI consultation for possible endoscopy. MMODL / IJN: [id number] /
--- NOTE | 2023-11-12 03:26 | CT ---
EXAM: CT Abdomen and Pelvis Without Intravenous Contrast CLINICAL HISTORY: CT Reason: abdominal pain TECHNIQUE: Axial computed tomography images of the abdomen and pelvis without intravenous contrast. CTDI is 9.5 mGy and DLP is 582.1 mGy-cm. This CT exam was performed using one or more of the following dose reduction techniques: automated exposure control, adjustment of the mA and/or kV according to patient size, and/or use of iterative reconstruction technique. COMPARISON: September 06, 2023 FINDINGS: Lung bases: Unremarkable. No mass. No consolidation. ABDOMEN: Liver: Mild fatty infiltration of the liver. The liver is enlarged measuring 22 cm craniocaudad. No focal liver mass lesion is seen. Gallbladder and bile ducts: Previous cholecystectomy. No biliary duct dilation is seen. Pancreas: Unremarkable. No ductal dilation. Spleen: Unremarkable. No splenomegaly. Adrenals: Unremarkable. No mass. Kidneys and ureters: The kidneys are unremarkable. No hydronephrosis or ureterolithiasis is seen. Stomach and bowel: See below. PELVIS: Appendix: The appendix is normal. Bowel loops are nondilated. Most of the colon is contracted which gives appearance of slight wall thickening. No definite surrounding inflammation is seen but mild colitis cannot be excluded. No pneumoperitoneum, free fluid, or abscess is seen. Bladder: The urinary bladder is empty but otherwise unremarkable. No stones. Reproductive: Unremarkable as visualized. ABDOMEN and PELVIS: Intraperitoneal space: See above. Bones/joints: No acute fracture. No dislocation. Soft tissues: Unremarkable. Vasculature: Unremarkable. No abdominal aortic aneurysm. Lymph nodes: Unremarkable. No enlarged lymph nodes. IMPRESSION: 1. The appendix is normal. Bowel loops are nondilated. Most of the colon is contracted which gives appearance of slight wall thickening. No definite surrounding inflammation is seen but mild colitis cannot be excluded. No pneumoperitoneum, free fluid, or abscess is seen. 2. The kidneys are unremarkable. No hydronephrosis or ureterolithiasis is seen.
[2023-11-12] MEDS: PANTOPRAZOLE 40 MG TABLET PO SCH ×2 (05:44→18:34)
--- NOTE | 2023-11-12 08:35 | XR ---
EXAMINATION TYPE: XR chest 2V DATE OF EXAM: 11/12/2023 7:42 AM CLINICAL INDICATION:Male, 33 years old with history of dyspnea; PH[facility] COMPARISON: None TECHNIQUE: XR chest 2V Frontal and lateral views of the chest. FINDINGS: Lungs/Pleura: There is no evidence of pleural effusion, focal consolidation, or pneumothorax. Pulmonary vascularity: Unremarkable. Heart/mediastinum: Cardiomediastinal silhouette is unremarkable. Musculoskeletal: No acute osseous pathology. Other findings: None IMPRESSION: No acute cardiopulmonary disease/process.
[2023-11-12] MEDS: HYDROcodone/APAP 5-325MG 1 EACH TAB PO PRN ×2 (10:05→19:48)
[2023-11-12 11:01] LABS: Basophils # (A) 0.06 X 10*3/uL (0.00-0.10); Basophils % (A) 0.9 %; Eosinophils # (A) 0.35 X 10*3/uL (0.04-0.35); Eosinophils % (A) 5.4 %; HCT 46.8 % (39.6-50.0); HGB 16.4 g/dL (13.0-17.0); Lymphocytes # (A) 1.53 X 10*3/uL (0.90-5.00); Lymphocytes % (A) 23.5 %; MCH 30.3 pg (27.0-32.0); MCV 86.5 FL (80.0-97.0); Mean Platelet Volume 10.3 FL (9.5-12.2); Monocytes # (A) 0.78 X 10*3/uL (0.20-1.00); NRBC Per 100 WBC 0 X 10*3/uL (0.00-0.01); Neutrophils # (A) 3.72 X 10*3/uL (1.80-7.70); Neutrophils % (A) 57.3 %; Platelet Count 227 X 10*3/uL (140-440); RBC 5.41 X 10*6/uL (4.40-5.60)
--- NOTE | 2023-11-12 15:31 | P.CONS ---
History of Present Illness - Reason for Consult Consult date: 11/12/23 GI bleed Requesting physician: Kei Reagan - Chief Complaint Rectal bleeding - History of Present Illness At this 33-year-old white male who presented to the emergency department with concerns for blood per rectum. States he's been having blood per rectum over the last 6 months duration with bowel movements, mostly small amounts. He states 2 days ago he started having more blood with his bowel movements. He states he had about 8 bowel movements that day which he says is normal that he has frequent bowel movements since his gallbladder was removed. He had no bleeding yesterday. He's had no previous colonoscopy in the past but is reports prior EGD. Denies any anticoagulation or regular NSAID use. States he does have lower abdominal pain. He states this is chronic since his gallbladder surgery. He had a CAT scan reporting appendix normal. Bowel loops are nondilated. Most of the colon is contracted, which gives appearance of slight wall thickening. No definite surrounding inflammation is seen but mild colitis cannot be excluded. No pneumoperitoneum, free fluid or abscess seen. The kidneys are unremarkable. No hydronephrosis or ureterolithiasis is seen Review of Systems REVIEW OF SYSTEMS: CARDIOPULMONARY: No chest pain, shortness of breath. Gastrointestinal: Chronic abdominal pain. No nausea or vomiting. No hematemesis, coffee-ground emesis. Bright red blood per rectum with bowel movement. Frequent bowel movements. GENITOURINARY: No dysuria or hematuria. MUSCULOSKELETAL: Reports normal range of motion. SKIN: No rashes. No jaundice. ENDOCRINE: No chills, fevers. No excessive weight gain or loss. No polydipsia or polyuria. PSYCHIATRIC: Unremarkable. NEUROLOGY: No change in mental status. Denies dizziness, headache. ENT: Vision unremarkable. CONSTITUTIONAL: No recent weight loss. No fever, chills, night sweats. Past Medical History Past Medical History: GERD/Reflux Additional Past Medical History / Comment(s): frequent abdominal pain, N/V, hx. of umbilical hernia, hx of kidney stones History of Any Multi-Drug Resistant Organisms: None Reported Past Surgical History: Cholecystectomy, Hernia Repair Additional Past Surgical History / Comment(s): as a baby, Hernia repair. Past Anesthesia/Blood Transfusion Reactions: No Reported Reaction Additional Past Anesthesia/Blood Transfusion Reaction / Comm: States had a cardiology work-up. Dr. Ragland saw this patient. Report - Sinus pauses, asympt omatic, suspect vagal in etiology. See EKG- EMR Past Psychological History: No Psychological Hx Reported Smoking Status: Current every day smoker, Vaper Past Alcohol Use History: Occasional Past Drug Use History: Marijuana Additional Drug Use History / Comment(s): Smokes daily, none 24 hours prior to surgery - Past Family History Mother Family Medical History: No Reported History Medications and Allergies Home Medications Medication Instructions Recorded Confirmed Type No Known Home Medications 11/11/23 11/11/23 History Allergies Allergy/AdvReac Type Severity Reaction Status Date / Time adhesive tape Allergy Rash/Hives Verified 11/11/23 14:17 Physical Exam Vitals: Vital Signs Temp Pulse Pulse Resp BP BP Pulse Ox 11/12/23 01:20 97.7 F 74 18 138/93 97 11/11/23 20:07 98.2 F 88 16 144/93 96 11/11/23 17:22 96 18 133/93 99 11/11/23 12:38 82 18 121/75 100 11/11/23 10:49 98.2 F 122 H 20 151/96 98 Intake and Output 11/11/23 11/12/23 11/12/23 22:59 06:59 14:59 Other: # Voids 1 2 Weight 81.647 kg General appearance: The patient is alert, oriented, appears in no acute distre ss. HET: Head is normocephalic and atraumatic. Conjunctiva pink. Sclera anicteric. Neck: Supple without lymphadenopathy. Trachea midline. Heart: Regular. Lungs: Equal expansion, normal respiratory effort. Abdomen: Soft, nontender, nondistended. No guarding or rigidity. Skin: No rashes. No jaundice. Extremities: Normal skin color and turgor. No pedal edema. Neurological: No focal deficits. Alert and oriented x3. Results CBC & Chem 7: 11/12/23 06:22 11/11/23 11:15 Labs: Abnormal Lab Results - Last 24 Hours (Table) 11/11/23 11/11/23 Range/Units 11:15 11:15 Hgb 17.6 H (13.0-17.5) gm/dL Glucose 114 H (74-99) mg/dL ALT 110 H (4-49) U/L Total Protein 8.3 H (6.3-8.2) g/dL Comments: He had a CAT scan reporting appendix normal. Bowel loops are nondilated. Most of the colon is contracted, which gives appearance of slight wall thickening. No definite surrounding inflammation is seen but mild colitis cannot be excluded. No pneumoperitoneum, free fluid or abscess seen. The kidneys are unremarkable. No hydronephrosis or ureterolithiasis is seen Assessment and Plan (1) Rectal bleeding Narrative/Plan: 33-year-old with rectal bleeding with bowel movements off-and-on over the last 6 months duration which she states has been small amounts, however 2 days ago. Patient said he had about 8 bowel movements and he was having significantly more blood per rectum which she states was bright red. He complains of chronic abdominal pain since his gallbladder surgery. Denies any nausea or vomiting. No previous colonoscopy. No anticoagulation or NSAID use and no history of inflammatory bowel disease. CT non-impressive possibly some mild colitis. Stable hemoglobin on admission, unclear etiology, may be hemorrhoidal, however, need to consider other possible source. We'll plan for colonoscopy tomorrow. Current Visit: Yes Status: Acute Code(s): K62.5 - HEMORRHAGE OF ANUS AND RECTUM SNOMED Code(s): 24674827 (2) Abdominal pain Current Visit: Yes Status: Acute Code(s): R10.9 - UNSPECIFIED ABDOMINAL PAIN SNOMED Code(s): 13723008 Plan: 1. Continue symptomatic and supportive care. 2. Daily CBC, transfuse for hemoglobin less than 7. 3. Patient may have clear liquid diet, nothing by mouth after midnight 4. Bowel prep this evening 5. Plan for colonoscopy tomorrow Thank you for this consultation. Dr. June Wilson I agree with the dictator's note, documented as a scribe by Elsa Bustos.
[2023-11-12] MEDS ORDERED: PEG 3350 (236 GM/BTL) + LYTES 4,000 ML BOTTLE PO ONE (16:00)
[2023-11-12] MEDS: LACTATED RINGERS 1,000 ML IV SCH (19:26)
[2023-11-13] MEDS ORDERED: LIDOCAINE 1% INJ 10MG/ML (20 ML MDV) ONE (07:07)
[2023-11-13] MEDS ORDERED: PROPOFOL 10 MG/ML 20 ML VIAL IV ONE (07:07)
[2023-11-13] MEDS ORDERED: IV FLUID CONTINUATION 600 ML IV ONE (07:09)
[2023-11-13] MEDS ORDERED: HYDROCORTISONE SUPPOSITORY 25 MG SUPP RECTAL STA (07:20)
--- NOTE | 2023-11-13 07:20 | P.PCN ---
Date of Procedure: 11/13/23 Procedure(s) Performed: BRIEF HISTORY: Patient is a 33-year-old pleasant white male admitted hospital with multiple episodes of active blood per rectum for the last few days duration. Patient has been having intermittent rectal bleeding on and off for the last 6 months duration. His and scheduled for colonoscopy to evaluate further PROCEDURE PERFORMED: Colonoscopy. PREOPERATIVE DIAGNOSIS: intermittent rectal bleeding. IV sedation per Anesthesia. PROCEDUREI After informed consent was obtained, the patient, was brought into the endoscopy unit. IV sedation was administered by Anesthesia under continuous monitoring. Digital rectal examination was normal. Initially the Olympus CF-160 flexible video colonoscope was then inserted in the rectum, gradually advanced into the cecum without any difficulty. Careful examination was performed as the scope was gradually being withdrawn. Ileocecal valve and the appendiceal orifice were visualized and appeared normal. Prep was excellent. Mucosa of the cecum, ascending colon, transverse colon, descending colon, sigmoid colon, and rectum appeared normal. Retroflexion was performed in the rectum internal and grade 2 internal hemorrhoids were noted. Patient tolerated the procedure well. Recommendations : Normal-appearing colon from rectum to cecum the office of colorectal neoplasia Grade 2nternal hemorrhoids. RECOMMENDATIONS: Findings of this examination were discussed with the patient . He was advised to be a high-fiber diet and fiber supplements a regular basis. In the meantime will give him a trial of hydrocortisone suppositories and at bedtime for 10 days. Diet will be advanced as tolerated and he can be discharged home today with outpatient follow up in 2 weeks. .
[2023-11-13] MEDS: HYDROcodone/APAP 5-325MG 1 EACH TAB PO PRN ×2 (08:55→18:06)
[2023-11-13] MEDS: PANTOPRAZOLE 40 MG TABLET PO SCH ×2 (08:55→18:06)
[2023-11-13 08:56] LABS: Basophils # (A) 0.05 X 10*3/uL (0.00-0.10); Basophils % (A) 0.8 %; Eosinophils # (A) 0.33 X 10*3/uL (0.04-0.35); Eosinophils % (A) 5.2 %; HCT 46.3 % (39.6-50.0); HGB 16.3 g/dL (13.0-17.0); Lymphocytes % (A) 20.6 %; MCH 30.5 pg (27.0-32.0); MCHC 35.2 g/dL (32.0-37.0); MCV 86.7 FL (80.0-97.0); Mean Platelet Volume 10.2 FL (9.5-12.2); Monocytes # (A) 0.64 X 10*3/uL (0.20-1.00); Monocytes % (A) 10.1 %; NRBC Per 100 WBC 0 X 10*3/uL (0.00-0.01); Neutrophils # (A) 3.94 X 10*3/uL (1.80-7.70); Neutrophils % (A) 62.4 %; Platelet Count 242 X 10*3/uL (140-440); RBC 5.34 X 10*6/uL (4.40-5.60); RDW 13.1 % (11.5-14.5); WBC 6.32 X 10*3/uL (4.50-10.00)
[2023-11-13 09:48] LABS: ALT 88 U/L (10-49); AST 32 U/L (14-35); Albumin 4.6 g/dL (3.8-4.9); Alkaline Phosphatase 66 U/L (41-126); Calcium 9.7 mg/dL (8.7-10.3); Carbon Dioxide 22.2 mmol/L (21.6-31.8); Chloride 102 mmol/L (96-109); Globulin 2.7 g/dL (1.6-3.3); Glucose 92 mg/dL (70-110); Potassium 4.1 mmol/L (3.5-5.5); Sodium 138 mmol/L (135-145); Total Protein 7.3 g/dL (6.2-8.2)
[2023-11-13] MEDS: LACTATED RINGERS 1,000 ML IV SCH (18:08)
--- NOTE | 2023-11-14 04:53 | PN ---
PROGRESS NOTE SUBJECTIVE: White male, still complaining of right lower quadrant abdominal pain for 3 months status post gallbladder surgery OBJECTIVE: VITAL SIGNS: Stable. Afebrile. CARDIOVASCULAR: S1, S2. LUNGS: Transmitted upper sounds. GI: Soft. HEMATOLOGY: Negative Homans. PSYCH: Fair mood and affect. MUSCULOSKELETAL: No fistula, hernia, but he has tenderness to palpation . Continue current treatments. Get surgical consult as well as MRI of the abdomen. Prognosis guarded. MMODL / IJN: [id number] /
[2023-11-14] MEDS: PANTOPRAZOLE 40 MG TABLET PO SCH ×2 (05:25→17:33)
[2023-11-14 08:01] VITALS: RESP 16
[2023-11-14] MEDS: HYDROcodone/APAP 5-325MG 1 EACH TAB PO PRN (10:21)
--- NOTE | 2023-11-14 11:14 | P.GSCN ---
History of Present Illness Consult date: 11/14/23 History of present illness: CHIEF COMPLAINT: Abdominal pain HISTORY OF PRESENT ILLNESS: This is a 33-year-old male who presented to the hospital with multiple episodes of blood per rectum over the last few days. And having intermittent rectal bleeding off and on for about 6 months. Patient was seen by GI service underwent colonoscopy which was normal-appearing with grade 2 internal hemorrhoids. Patient also is complaining of abdominal pain to the right of the umbilicus since his incarcerated umbilical hernia repair in August. Patient reports that he is tolerating diet. She is having bowel movements which are loose and that is normal for him. But he does report that the pain becomes very sharp and rates it a 9 out of 10. Currently pain 6 out of 10. Medicine service has him scheduled for an MRI of the abdomen today. Patient did have a computed tomography scan of the abdomen when he presented which had shown a normal appendix. On his contracted which gives appearance of a slight wall thickening. No pneumoperitoneum free fluid or abscess. Other surgical history does include cholecystectomy. PAST MEDICAL HISTORY: GERD, kidney stones PAST SURGICAL HISTORY: Cholecystectomy, incarcerated umbilical hernia repair MEDICATIONS: See below ALLERGIES: See below SOCIAL HISTORY: No illicit drug use. REVIEW OF SYSTEMS: CONSTITUTIONAL: Denies fever or chills. HEENT: Denies blurred vision, vision changes, or eye pain. Denies hemoptysis CARDIOVASCULAR: Denies chest pain or pressure. RESPIRATORY: No shortness of breath. GASTROINTESTINAL: See HPI for pertinent findings HEMATOLOGIC: Denies bleeding disorders. GENITOURINARY: Denies any blood in urine or increased urinary frequency. SKIN: Denies pruitis. Denies rash. PHYSICAL EXAM: VITAL SIGNS: Reviewed GENERAL: Well-developed in no acute distress. HEENT: No sclera icterus. Extraocular movements grossly intact. Moist buccal mucosa. Head is atraumatic, normocephalic. No nasal drainage. ABDOMEN: Soft. Nondistended. Tenderness to palpation to the right of the umbilicus. Old incision sites have healed. NEUROLOGIC: Alert and oriented. Cranial nerves II through XII grossly intact. LABORATORY DATA: WBC 6.32 Hgb 16.3 platelets 242 Sodium 138 potassium is 4.1 creatinine 1.0 IMAGING: Computed tomography scan abdomen and pelvis appendix is normal. Bowel loops are nondilated. Most of the colon his contracted which gives appearance of slight wall thickening. No definite surrounding inflammation is seen but mild colitis cannot be excluded. No pneumoperitoneum free fluid or abscess. Kidneys are unremarkable. No hydronephrosis or ureteral a thesis is seen. ASSESSMENT: 1. Abdominal pain to the right of the umbilicus possibly secondary to adhesions 2. History of incarcerated umbilical hernia status post laparoscopic robotic repair on 09/02/2023 3. History of cholecystectomy PLAN: -No surgical intervention planned -Continue supportive care -Continue regular diet -Follow up on MRI results Physician [place] [employer] Guide note has been reviewed by physician. Signing provider agrees with the documented findings, assessment, and plan of care. Past Medical History Past Medical History: GERD/Reflux Additional Past Medical History / Comment(s): frequent abdominal pain, N/V, hx. of umbilical hernia, hx of kidney stones History of Any Multi-Drug Resistant Organisms: None Reported Past Surgical History: Cholecystectomy, Hernia Repair Additional Past Surgical History / Comment(s): as a baby, Hernia repair. Past Anesthesia/Blood Transfusion Reactions: No Reported Reaction Additional Past Anesthesia/Blood Transfusion Reaction / Comm: States had a cardiology work-up. Dr. Ragland saw this patient. Report - Sinus pauses, asymptomatic, suspect vagal in etiology. See EKG- EMR Past Psychological History: No Psychological Hx Reported Smoking Status: Current every day smoker, Vaper Past Alcohol Use History: Occasional Past Drug Use History: Marijuana Additional Drug Use History / Comment(s): Smokes daily, none 24 hours prior to surgery - Past Family History Mother Family Medical History: No Reported History Medications and Allergies Home Medications Medication Instructions Recorded Confirmed Type No Known Home Medications 11/11/23 11/11/23 History Allergies Allergy/AdvReac Type Severity Reaction Status Date / Time adhesive tape Allergy Rash/Hives Verified 11/11/23 14:17 Surgical - Exam Vital Signs Temp Pulse Resp BP Pulse Ox 98.2 F 122 H 20 151/96 98 11/11/23 10:49 11/11/23 10:49 11/11/23 10:49 11/11/23 10:49 11/11/23 10:49 Results - Labs 11/13/23 05:23 11/13/23 05:20
--- NOTE | 2023-11-14 13:53 | MR ---
EXAMINATION TYPE: MR abdomen wo/w con DATE OF EXAM: 11/14/2023 COMPARISON: CT abdomen and pelvis 2 days ago HISTORY: Right lower quadrant pain since hernia repair surgery 3 months ago CONTRAST: Standard multiplanar, multisequence MRI departmental protocol images were obtained without contrast a nd with 8 mL intravenous Gadavist gadolinium contrast. FINDINGS: Lung bases remain grossly clear. Liver shows diffuse signal dropout consistent with fatty i nfiltrative hepatocellular disease. Gallbladder is surgically absent. No biliary dilatation. Splenome blade redemonstrated measuring 15.3 cm long axis image 25. Pancreas and both adrenal glands appear wit hin normal limits. Kidneys are symmetric. There is subcentimeter nonenhancing lesion lower pole right kidney favoring tiny proteinaceous cyst. No abnormal small or large bowel dilatation. No intra-abdom inal ascites. No AAA. Appendix within normal limits for base of cecum seen best on coronal images 19 and 20. Osseous structures are intact. Imaging does not include the pelvis which is appropriate for MRI. IMPRESSION: No findings on MRI abdomen study to account for patient's symptoms of right lower quadran t pain.
[2023-11-14 14:34] VITALS: PULSE 98; TEMP 98.2
[2023-11-14 14:58] VITALS: BP 143/84
== END 2023-11-14 19:40 | disposition home or self-care (01) ==
LOC: EC 10:30 → 6NMEDSUR 13:52
PROVIDERS: ADMIT Family Medicine; ATTEND Family Medicine
DX: K62.5 Hemorrhage of anus and rectum (principal); K64.1 Second degree hemorrhoids; K21.9 Gastro-esophageal reflux disease without esophagitis; R19.7 Diarrhea, unspecified; G89.29 Other chronic pain; R10.31 Right lower quadrant pain; R10.33 Periumbilical pain; F17.290 Nicotine dependence, other tobacco product, uncomplicated; Z79.899 Other long term (current) drug therapy; Z91.048 Other nonmedicinal substance allergy status; Z87.19 Personal history of other diseases of the digestive system; Z87.442 Personal history of urinary calculi; Z90.49 Acquired absence of other specified parts of digestive tract; Z98.890 Other specified postprocedural states
CPT/HCPCS: 99285; 36415; 93005; 80053 ×2; 83605; 83735; 85025 ×3; 85610; 85730; 71046; 74176; 74183; 45378; G0378 ×4; J2001; J2704

== ENCOUNTER 2024-03-10 11:59 | Observation (INO) | payer OTHER ==
[2024-03-10] MEDS ORDERED: LORazepam 2 MG/ML INJ IV PRN ×3 (12:33)
[2024-03-10] MEDS: PANTOPRAZOLE 40 MG/10 ML VIAL IVP STA (12:45)
[2024-03-10] MEDS: SODIUM CHLORIDE 0.9% 1,000 ML IV STA ×2 (12:46→14:35)
[2024-03-10] MEDS: ONDANSETRON 4 MG/2 ML VIAL IVP STA (12:46)
[2024-03-10] MEDS: LORazepam 2 MG/ML INJ IV STA (12:46)
[2024-03-10] MEDS: THIAMINE 100 MG/ML 2 ML VIAL IM STA (13:02)
[2024-03-10 13:05] LABS: Basophils % (A) 0 %; Eosinophils # (A) 0.1 k/uL (0-0.7); Eosinophils % (A) 0 %; HCT 47.7 % (39.0-53.0); HGB 17.1 gm/dL (13.0-17.5); Hyperchromasia Slight; Lymphocytes # (A) 0.8 k/uL (1.0-4.8); Lymphocytes % (A) 4 %; MCH 30.8 pg (25.0-35.0); MCHC 35.8 g/dL (31.0-37.0); MCV 86.1 fL (80.0-100.0); Mean Platelet Volume 8.6; Monocytes % (A) 6 %; Neutrophils # (A) 15.5 k/uL (1.3-7.7); Neutrophils % (A) 88 %; Platelet Count 287 k/uL (150-450); RBC 5.54 m/uL (4.30-5.90); WBC 17.5 k/uL (3.8-10.6)
[2024-03-10 13:18] LABS: ALT 44 U/L (4-49); AST 33 U/L (17-59); African American GFR (CKD) >90 (>60 ml/min/1.73 sqM); Albumin 4.9 g/dL (3.5-5.0); Alcohol <10 mg/dL; Alkaline Phosphatase 75 U/L (38-126); Amylase 235 U/L (30-110); Anion Gap 15 mmol/L; Blood Urea Nitrogen 13 mg/dL (9-20); Calcium 9.1 mg/dL (8.4-10.2); Carbon Dioxide 21 mmol/L (22-30); Chloride 98 mmol/L (98-107); Glucose 78 mg/dL (74-99); Lipase 39 U/L (23-300); Non-African American GFR(CKD) >90 (>60 ml/min/1.73 sqM); Potassium 3.6 mmol/L (3.5-5.1); Sodium 134 mmol/L (137-145); Total Bilirubin 1.8 mg/dL (0.2-1.3); Total Protein 8.1 g/dL (6.3-8.2)
--- NOTE | 2024-03-10 13:23 | XR ---
EXAMINATION TYPE: XR chest 1V portable DATE OF EXAM: 03/10/2024 COMPARISON: 11/12/2023 HISTORY: Chest pain TECHNIQUE: Single frontal view of the chest is obtained. FINDINGS: There is no focal air space opacity, pleural effusion, or pneumothorax seen. The cardiac silhouette size is within normal limits. The osseous structures are intact. IMPRESSION: 1. No acute process.
[2024-03-10 13:38] LABS: INR 1.1 (<1.2); Prothrombin Time 11.7 sec (10.0-12.5)
[2024-03-10 13:51] LABS: Appearance,Urine Clear (Clear); Bilirubin,Urine Negative (Negative); Blood,Urine Negative (Negative); Color,Urine Yellow; Glucose,Urine (UA) Negative (Negative); Ketones,Urine 4+ (Negative); Leukocyte Esterase,Urine Negative (Negative); Mucus,Urine Moderate /hpf; Nitrite,Urine Negative (Negative); Protein,Urine 1+ (Negative); RBC,Urine 1 /hpf (0-5); Squamous Epithelial Cell,Urine <1 /hpf (0-4); Urobilinogen,Urine <2.0 mg/dL (<2.0); WBC,Urine 2 /hpf (0-5)
[2024-03-10] MEDS: METOCLOPRAMIDE 5 MG/ML 2 ML VIAL IVP STA (14:35)
[2024-03-10] MEDS: MORPHINE SULFATE 4 MG/ML SYRINGE IVP STA (14:36)
--- NOTE | 2024-03-10 15:09 | ED ---
General Adult HPI - General Chief complaint: Nausea/Vomiting/Diarrhea Stated complaint: Muscle spasms Time Seen by Provider: 03/10/24 12:10 Source: patient, EMS, RN notes reviewed, old records reviewed Mode of arrival: EMS Limitations: no limitations - History of Present Illness Initial comments: Patient is a 33-year-old male who presents emergency department complaining of abdominal pain, nausea, vomiting. Has a history of daily heavy alcohol use. He denies this. Has been throwing up for a few days. States he only drinks heavily on weekends. Also uses marijuana. Has been throwing up for over a day. No history of seizures with withdrawal. States he has generalized body aches and spasming with nausea and vomiting and abdominal pain. Denies chest pain or shortness of breath. Denies any fevers or chills or cough. No diarrhea. Presents for further evaluation at this time. - Related Data Home Medications Medication Instructions Recorded Confirmed Amoxic-Pot Clav 875-125Mg 1 tab PO DIRECTED 03/10/24 03/10/24 [Augmentin 875-125] Allergies Allergy/AdvReac Type Severity Reaction Status Date / Time adhesive tape Allergy Rash/Hives Verified 03/10/24 14:29 Review of Systems ROS Statement: Those systems with pertinent positive or pertinent negative responses have been documented in the HPI. Review of Systems: CONST: Denies fever EYES: Denies blurry vision ENT: Denies nasal congestion C/V: Denies Chest pain RESP: Denies shortness of breath GI: Endorses abdominal pain : Denies dysuria SKIN: Denies rash. MSK: Denies joint pain. NEURO: Denies headache ROS Other: All systems not noted in ROS Statement are negative. Past Medical History Past Medical History: GERD/Reflux Additional Past Medical History / Comment(s): frequent abdominal pain, N/V, hx. of umbilical hernia, hx of kidney stones History of Any Multi-Drug Resistant Organisms: None Reported Past Surgical History: Cholecystectomy, Hernia Repair Additional Past Surgical History / Comment(s): as a baby, Hernia repair. Past Anesthesia/Blood Transfusion Reactions: No Reported Reaction Additional Past Anesthesia/Blood Transfusion Reaction / Comment(s): States had a cardiology work-up. Dr. Ragland saw this patient. Report - Sinus pauses, asymptomatic, suspect vagal in etiology. See EKG- EMR Past Psychological History: No Psychological Hx Reported Smoking Status: Current every day smoker, Vaper Past Alcohol Use History: Daily, Heavy Past Drug Use History: Marijuana - Past Family History Mother Family Medical History: No Reported History General Exam - General Exam Comments Initial Comments: General: Does appear to be in mild alcohol withdrawals with patient denies daily alcohol abuse. Patient has tongue fasciculations that are very mild as well as extremity tremors. HEAD: Normal with no signs of head trauma. EYES: PERRLA, EOMI, conjunctiva normal, no discharge. ENT: Hearing grossly intact, normal oropharynx. Mucous membranes. RESPIRATORY: Clear breath sounds bilaterally. No wheezes, rales, or rhonchi. C/V: Regular rate and rhythm. S1 and S2 auscultated, no edema, peripheral pulses 2+ and intact throughout ABD: General abdominal discomfort without any focal tenderness. Nondistended. No peritoneal signs. No rebound tenderness. EXT: Normal range of motion, no obvious deformity SKIN: No rashes or lesions observed on exposed skin. NEURO: Alert and oriented x 4. Limitations: no limitations Course Vital Signs 03/10/24 03/10/24 03/10/24 12:04 13:48 14:38 Temperature 97.4 F L Pulse Rate 86 99 111 H Respiratory 18 18 20 Rate Blood Pressure 124/90 156/99 152/98 O2 Sat by Pulse 99 96 97 Oximetry Medical Decision Making - Medical Decision Making Was pt. sent in by a medical professional or institution (JENNIFER Velarde, STAFF NURSE MIDWIFE, urgent care, hospital, or intermediate...) When possible be specific @ -No Did you speak to anyone other than the patient for history (EMS, parent, family, police, friend...)? What history was obtained from this source @ -No Did you review nursing and triage notes (agree or disagree)? Why? @ -I reviewed and agree with nursing and triage notes Were old charts reviewed (outside hosp., previous admission, EMS record, old EKG, old radiological studies, urgent care reports/EKG's, intermediate records)? Report findings @ -No old charts were reviewed Differential Diagnosis (chest pain, altered mental status, abdominal pain women, abdominal pain men, vaginal bleeding, weakness, fever, dyspnea, syncope, headache, dizziness, GI bleed, back pain, seizure, CVA, palpatations, mental health, musculoskeletal)? @ -Differential Abdominal Pain Men: Appendicitis, cholecystitis, diverticulosis, ischemic bowel, pancreatitis, hepatitis, UTI, gastroenteritis, AAA, incarcerated hernia, bowel obstruction, constipation, inflammatory bowel, hepatitis, peptic ulcer disease, splenic infarction, perforated viscus, testicular torsion, this is not meant to be an all-inclusive list EKG interpreted by me (3pts min.). @ -As above X-rays interpreted by me (1pt min.). @ -X-ray reveals no obvious acute cardiopulmonary process. CT interpreted by me (1pt min.). @ -CT abdomen pelvis reveals findings consistent with enteritis. U/S interpreted by me (1pt. min.). @ -None done What testing was considered but not performed or refused? (CT, X-rays, U/S, labs)? Why? @ -None What meds were considered but not given or refused? Why? @ -None Did you discuss the management of the patient with other professionals (professionals i.e. , PA, STAFF NURSE MIDWIFE, lab, RT, psych nurse, medical social worker, sweet potato disintegrator, teacher, correctional officer, case management coordinator)? Give summary @ -Discussed with Dr. Brewster of [facility] who accepted the admission. Was smoking cessation discussed for >3mins.? @ -No Was critical care preformed (if so, how long)? @ -No Were there social determinants of health that impacted care today? How? (Homelessness, low income, unemployed, alcoholism, drug addiction, transportation, low edu. Level, literacy, decrease access to med. care, halfway, rehab)? @ -No Was there de-escalation of care discussed even if they declined (Discuss DNR or withdrawal of care, Hospice)? DNR status @ -No What co-morbidities impacted this encounter? (DM, HTN, Smoking, COPD, CAD, C ancer, CVA, ARF, Chemo, Hep., AIDS, mental health diagnosis, sleep apnea, morbid obesity)? @ -None Was patient admitted / discharged? Hospital course, mention meds given and route, prescriptions, significant lab abnormalities, going to OR and other pertinent info. @ -Based on patient's presentation and physical exam, presents with abdominal pain, nausea, vomiting. Appears to be mild alcohol withdrawals as well. Patient will be given Ativan as well as IV fluids, antiemetics, analgesia. Patient in agreement this plan. EKG shows no signs of acute ischemia. Laboratory studies remarkable for a leukocytosis of 17 which is likely reactive. Remainder the labs unremarkable. Urinalysis remarkable for 4+ ketones. Alcohol undetectable. On reevaluation, patient still having abdominal pain. We will obtain CT imaging at this time. Patient was in agreement this plan. CT abdomen pelvis reveals findings consistent with enteritis. I updated the patient. He is still having intractable nausea and vomiting with multiple doses of antiemetics. He will be admitted to the hospital at this brayden e. He states he now only drinks on weekends and used to drink every day but has been multiple months. States he does not believe he is going through alcohol withdrawals. We will keep him on CIWA protocol at this time however symptomatically treat him otherwise. He was in agreement this plan. I spoke with the admitting team, Dr. Brewster of [facility] who accepted the admission. Undiagnosed new problem with uncertain prognosis? @ -No Drug Therapy requiring intensive monitoring for toxicity (Heparin, Nitro, Insulin, Cardizem)? @ -No Were any procedures done? @ -No Diagnosis/symptom? @ -Enteritis, intractable nausea and vomiting dehydration Acute, or Chronic, or Acute on Chronic? @ -Acute Uncomplicated (without systemic symptoms) or Complicated (systemic symptoms)? @ -Complicated Side effects of treatment? @ -None Exacerbation, Progression, or Severe Exacerbation] @ -No Poses a threat to life or bodily function? @ -Yes - Lab Data Result diagrams: 03/10/24 12:44 03/10/24 12:44 Lab Results 03/10/24 03/10/24 03/10/24 Range/Units 12:44 12:44 12:44 WBC 17.5 H (3.8-10.6) k/uL RBC 5.54 (4.30-5.90) m/uL Hgb 17.1 (13.0-17.5) gm/dL Hct 47.7 (39.0-53.0) % MCV 86.1 (80.0-100.0) fL MCH 30.8 (25.0-35.0) pg MCHC 35.8 (31.0-37.0) g/dL RDW 13.0 (11.5-15.5) % Plt Count 287 (150-450) k/uL MPV 8.6 Neutrophils % 88 % Lymphocytes % 4 % Monocytes % 6 % Eosinophils % 0 % Basophils % 0 % Neutrophils # 15.5 H (1.3-7.7) k/uL Lymphocytes # 0.8 L (1.0-4.8) k/uL Monocytes # 1.0 (0-1.0) k/uL Eosinophils # 0.1 (0-0.7) k/uL Basophils # 0.0 (0-0.2) k/uL Hyperchromasia Slight PT 11.7 (10.0-12.5) sec INR 1.1 (<1.2) APTT 20.0 L (22.0-30.0) sec Sodium 134 L (137-145) mmol/L Potassium 3.6 (3.5-5.1) mmol/L Chloride 98 (98-107) mmol/L Carbon Dioxide 21 L (22-30) mmol/L Anion Gap 15 mmol/L BUN 13 (9-20) mg/dL Creatinine 0.81 (0.66-1.25) mg/dL Est GFR (CKD-EPI)AfAm >90 (>60 ml/min/1.73 sqM) Est GFR (CKD-EPI)NonAf >90 (>60 ml/min/1.73 sqM) Glucose 78 (74-99) mg/dL Calcium 9.1 (8.4-10.2) mg/dL Total Bilirubin 1.8 H (0.2-1.3) mg/dL AST 33 (17-59) U/L ALT 44 (4-49) U/L Alkaline Phosphatase 75 (38-126) U/L Total Protein 8.1 (6.3-8.2) g/dL Albumin 4.9 (3.5-5.0) g/dL Amylase 235 H (30-110) U/L Lipase 39 (23-300) U/L Urine Color Urine Appearance (Clear) Urine pH (5.0-8.0) Ur Specific [place] (1.001-1.035) Urine Protein (Negative) Urine Glucose (UA) (Negative) Urine Ketones (Negative) Urine Blood (Negative) Urine Nitrite (Negative) Urine Bilirubin (Negative) Urine Urobilinogen (<2.0) mg/dL Ur Leukocyte Esterase (Negative) Urine RBC (0-5) /hpf Urine WBC (0-5) /hpf Ur Squamous Epith Cells (0-4) /hpf Urine Mucus (None) /hpf Serum Alcohol <10 mg/dL 03/10/24 Range/Units 12:48 WBC (3.8-10.6) k/uL RBC (4.30-5.90) m/uL Hgb (13.0-17.5) gm/dL Hct (39.0-53.0) % MCV (80.0-100.0) fL MCH (25.0-35.0) pg MCHC (31.0-37.0) g/dL RDW (11.5-15.5) % Plt Count (150-450) k/uL MPV Neutrophils % % Lymphocytes % % Monocytes % % Eosinophils % % Basophils % % Neutrophils # (1.3-7.7) k/uL Lymphocytes # (1.0-4.8) k/uL Monocytes # (0-1.0) k/uL Eosinophils # (0-0.7) k/uL Basophils # (0-0.2) k/uL Hyperchromasia PT (10.0-12.5) sec INR (<1.2) APTT (22.0-30.0) sec Sodium (137-145) mmol/L Potassium (3.5-5.1) mmol/L Chloride (98-107) mmol/L Carbon Dioxide (22-30) mmol/L Anion Gap mmol/L BUN (9-20) mg/dL Creatinine (0.66-1.25) mg/dL Est GFR (CKD-EPI)AfAm (>60 ml/min/1.73 sqM) Est GFR (CKD-EPI)NonAf (>60 ml/min/1.73 sqM) Glucose (74-99) mg/dL Calcium (8.4-10.2) mg/dL Total Bilirubin (0.2-1.3) mg/dL AST (17-59) U/L ALT (4-49) U/L Alkaline Phosphatase (38-126) U/L Total Protein (6.3-8.2) g/dL Albumin (3.5-5.0) g/dL Amylase (30-110) U/L Lipase (23-300) U/L Urine Color Yellow Urine Appearance Clear (Clear) Urine pH 6.0 (5.0-8.0) Ur Specific [place] 1.030 (1.001-1.035) Urine Protein 1+ H (Negative) Urine Glucose (UA) Negative (Negative) Urine Ketones 4+ H (Negative) Urine Blood Negative (Negative) Urine Nitrite Negative (Negative) Urine Bilirubin Negative (Negative) Urine Urobilinogen <2.0 (<2.0) mg/dL Ur Leukocyte Esterase Negative (Negative) Urine RBC 1 (0-5) /hpf Urine WBC 2 (0-5) /hpf Ur Squamous Epith Cells <1 (0-4) /hpf Urine Mucus Moderate H (None) /hpf Serum Alcohol mg/dL - EKG Data -: EKG Interpreted by Me EKG Comments: 12-lead Electrocardiogram Interpretation Note EKG was reviewed and interpreted by myself. 12-lead ECG performed at 1203 is interpreted by me as revealing normal sinus rhythm at a rate of 84 beats per minute. [place] is normal. IA interval is 151 ms, QRS duration is 90 ms, QTc is 390 ms.. There were no ST or T wave abnormalities to suggest myocardial ischemia or injury. R wave progression across the precordium was satisfactory. By my interpretation this EKG is non-diagnostic for acute ischemia. Disposition Clinical Impression: Enteritis, Dehydration, Intractable nausea and vomiting Disposition: ADMITTED IP TO THIS HOSP Condition: Stable Referrals: Maddy Ramos MD [Primary Care Provider] - 1-2 days Time of Disposition: 15:30
--- NOTE | 2024-03-10 15:13 | CT ---
EXAMINATION TYPE: CT abdomen pelvis w con DATE OF EXAM: 03/10/2024 COMPARISON: 11/12/2023 HISTORY: abd pain n/v CT DLP: 908.5 mGycm CONTRAST: CT scan of the abdomen and pelvis is performed without Oral Contrast and with IV Contrast, patient in jected with 100 mL of Isovue 300. FINDINGS: LUNG BASES-: No visible nodule. No infiltrate. LIVER/GB: Mild hepatic steatosis noted. The gallbladder is surgically absent. No space occupying hepa tic lesion. Biliary tree is of normal caliber. PANCREAS: No inflammation. No distinct mass. SPLEEN: Mild splenomegaly with craniocaudal measuring 13.8 cm. No lesion seen. ADRENALS: No nodule. No thickening. KIDNEYS/BLADDER: No hydronephrosis. No nephrolithiasis. Subcentimeter right-sided renal cystic lesi on. Urinary bladder grossly unremarkable. BOWEL: Normal appendix. Mild fluid distention of the small bowel with mild scattered wall thickening may reflect small bowel enteritis. Correlate clinically. GENITAL ORGANS: No gross abnormality. LYMPH NODES: No greater than 1cm abdominal or pelvic lymph nodes are appreciated. AORTA: No significant abnormality. OSSEOUS STRUCTURES: No significant abnormality is seen. OTHER: No significant additional abnormality is seen. IMPRESSION: 1. Correlate with small bowel enteritis. 2. Mild splenomegaly. 3. Hepatic steatosis.
[2024-03-10] MEDS ORDERED: NALOXONE 0.4 MG/ML 1 ML VIAL IV PRN (15:31)
[2024-03-10] MEDS: MORPHINE SULFATE 4 MG/ML SYRINGE IV PRN (16:41)
[2024-03-10] MEDS: HEPARIN SODIUM,PORCINE 5,000 UNIT/ML 1 ML VIAL SQ SCH (16:45)
[2024-03-10] MEDS: ONDANSETRON 4 MG/2 ML VIAL IVP PRN (20:34)
[2024-03-10] MEDS ORDERED: LORazepam 1 MG/0.5 ML VIAL IV PRN ×3 (21:40→21:41)
--- NOTE | 2024-03-11 01:36 | P.HPIM ---
History of Present Illness Patient seen and examined by me at bedside. Emergency room This is a pleasant 33 years old male with past medical history of GERD, um bilical hernia, kidney stone, He has history of cholecystectomy He presents because of recurrent nausea and vomiting since yesterday, he says each time he eats something or drinking able to walk,) there was little blood in his vomiting. He states his bowel movement is normal Also complaining from mild abdominal pain, central nonradiating of 1 day duration about 7/10 in severity [place] like sharp with no specific precipitating or relieving factors No specific urinary symptoms like dysuria or urgency No chest pain or dyspnea. No headache dizziness weakness or numbness. Patient states that he drinks alcohol but because of his stomach sickness he was unable to drink much last week, and his last drink was Friday. Patient vitals are stable Patient has unremarkable BMP, liver enzymes, INR CBC showing leukocytosis with WBC 17.5 Lipase normal 39, urinalysis negative Serum alcohol less than 10 CT of the abdomen pelvis with contrast showing small bowel enteritis, hepatic steatosis and mild hepatomegaly Review of Systems Review of systems CONSTITUTIONAL: No fever, no malaise, no fatigue. HEENT: No recent visual problems or hearing problems. Denied any sore throat. CARDIOVASCULAR: No orthopnea, PND, no palpitations, no syncope. PULMONARY: No shortness of breath, no cough, no hemoptysis. GASTROINTESTINAL: No diarrhea, no nausea, no vomiting, no abdominal pain. Normoactive bowel sounds. NEUROLOGICAL: No headaches, no weakness, no numbness. HEMATOLOGICAL: Denies any bleeding or petechiae. GENITOURINARY: Denies any burning micturition, frequency, or urgency. MUSCULOSKELETAL/RHEUMATOLOGICAL: Denies any joint pain, swelling, or any muscle pain. ENDOCRINE: Denies any polyuria or polydipsia. Past Medical History Past Medical History: GERD/Reflux Additional Past Medical History / Comment(s): frequent abdominal pain, N/V, hx. of umbilical hernia, hx of kidney stones History of Any Multi-Drug Resistant Organisms: None Reported Past Surgical History: Cholecystectomy, Hernia Repair Additional Past Surgical History / Comment(s): as a baby, Hernia repair. Past Anesthesia/Blood Transfusion Reactions: No Reported Reaction Additional Past Anesthesia/Blood Transfusion Reaction / Comment(s): States had a cardiology work-up. Dr. Ragland saw this patient. Report - Sinus pauses, asymptomatic, suspect vagal in etiology. See EKG- EMR Past Psychological History: No Psychological Hx Reported Smoking Status: Current some day smoker, Vaper Past Alcohol Use History: Heavy, Occasional Past Drug Use History: Marijuana Additional Drug Use History / Comment(s): Smokes daily, none 24 hours prior to surgery - Past Family History Mother Family Medical History: No Reported History Medications and Allergies Home Medications Medication Instructions Recorded Confirmed Type Amoxic-Pot Clav 875-125Mg 1 tab PO DIRECTED 03/10/24 03/10/24 History [Augmentin 875-125] Allergies Allergy/AdvReac Type Severity Reaction Status Date / Time adhesive tape Allergy Rash/Hives Verified 03/10/24 14:29 Physical Exam Vitals: Vital Signs Temp Pulse Pulse Resp BP BP Pulse Ox 03/10/24 19:22 98.5 F 112 H 16 138/77 98 03/10/24 17:28 98.4 F 104 H 137/89 95 03/10/24 16:52 82 20 142/98 98 03/10/24 14:38 111 H 20 152/98 97 03/10/24 13:48 99 18 156/99 96 03/10/24 12:04 97.4 F L 86 18 124/90 99 Intake and Output 03/10/24 03/10/24 03/11/24 14:59 22:59 06:59 Other: Weight 79.379 kg 79.379 kg GENERAL: The patient is alert and oriented x3, not in any acute distress. Well developed, well nourished. HEENT: Pupils are round and equally reacting to light. EOMI. No scleral icterus. No conjunctival pallor. Normocephalic, atraumatic. No pharyngeal erythema. No thyromegaly. CARDIOVASCULAR: S1 and S2 present. No murmurs, rubs, or gallops. PULMONARY: Chest is clear to auscultation, no wheezing , no crackles. -ABDOMEN: Soft, mild right-sided abdominal tenderness , no guarding or rebound tenderness , nondistended, normoactive bowel sounds. No palpable organomegaly. MUSCULOSKELETAL: No joint swelling or deformity. EXTREMITIES: No cyanosis, clubbing, or pedal edema. NEUROLOGICAL: Gross neurological examination did not reveal any focal deficits. SKIN: No rashes. no petechiae. Results CBC & Chem 7: 03/10/24 12:44 03/10/24 12:44 Labs: Abnormal Lab Results - Last 24 Hours (Table) 03/10/24 03/10/24 03/10/24 Range/Units 12:44 12:44 12:44 WBC 17.5 H (3.8-10.6) k/uL Neutrophils # 15.5 H (1.3-7.7) k/uL Lymphocytes # 0.8 L (1.0-4.8) k/uL APTT 20.0 L (22.0-30.0) sec Sodium 134 L (137-145) mmol/L Carbon Dioxide 21 L (22-30) mmol/L Total Bilirubin 1.8 H (0.2-1.3) mg/dL Amylase 235 H (30-110) U/L Urine Protein (Negative) Urine Ketones (Negative) Urine Mucus (None) /hpf 03/10/24 Range/Units 12:48 WBC (3.8-10.6) k/uL Neutrophils # (1.3-7.7) k/uL Lymphocytes # (1.0-4.8) k/uL APTT (22.0-30.0) sec Sodium (137-145) mmol/L Carbon Dioxide (22-30) mmol/L Total Bilirubin (0.2-1.3) mg/dL Amylase (30-110) U/L Urine Protein 1+ H (Negative) Urine Ketones 4+ H (Negative) Urine Mucus Moderate H (None) /hpf Thrombosis Risk Factor Assmnt - Choose All That Apply Any of the Below Risk Factors Present?: Yes Each Factor Represents 1 point: Obesity (BMI >25) Other Risk Factors: No Other congenital or acquired thrombophilia - If yes, enter type in comment: No Thrombosis Risk Factor Assessment Total Risk Factor Score: 1 Thrombosis Risk Factor Assessment Level: Low Risk Assessment and Plan Assessment: Acute enteritis, seen on CAT scan of the abdomen. Nausea vomiting could be acute gastroenteritis versus other, Could be exacerbated by alcohol use. patient reports with some blood in the vomiting Alcohol use disorder at risk of withdrawal Obesity with BMI of 31 hepatic steatosis and mild hepatomegaly. Most likely secondary to alcohol effect Plan: Continue with normal saline IV Protonix GI consult Monitor hemoglobin On CIWA protocol Patient was counseled to quit drinking alcohol Avoid NSAIDs or anticoagulants Labs and medication were reviewed.. Continue same treatment. Continue with symptomatic treatment. Resume home medication. Monitor labs and vitals. DVT and GI prophylaxis. Further recommendations as per clinical course of the rayshawn العراقي DVT prophylaxis: SCD, GI Prophylaxis: Pepcid Prognosis is guarded
[2024-03-11] MEDS: SODIUM CHLORIDE 0.9% 1,000 ML IV SCH (03:34)
[2024-03-11 08:42] LABS: Basophils # (A) 0.04 X 10*3/uL (0.00-0.10); Basophils % (A) 0.6 %; Eosinophils # (A) 0.14 X 10*3/uL (0.04-0.35); Eosinophils % (A) 2.1 %; HCT 43.9 % (39.6-50.0); HGB 15.5 g/dL (13.0-17.0); Lymphocytes # (A) 1.08 X 10*3/uL (0.90-5.00); Lymphocytes % (A) 16.1 %; MCH 31.3 pg (27.0-32.0); MCHC 35.3 g/dL (32.0-37.0); MCV 88.5 FL (80.0-97.0); Mean Platelet Volume 10.7 FL (9.5-12.2); Monocytes # (A) 0.64 X 10*3/uL (0.20-1.00); Monocytes % (A) 9.5 %; NRBC Per 100 WBC 0 X 10*3/uL (0.00-0.01); Neutrophils # (A) 4.77 X 10*3/uL (1.80-7.70); Neutrophils % (A) 71.1 %; Platelet Count 214 X 10*3/uL (140-440); RBC 4.96 X 10*6/uL (4.40-5.60); RDW 12.4 % (11.5-14.5); WBC 6.71 X 10*3/uL (4.50-10.00)
[2024-03-11] MEDS: THIAMINE 100 MG TAB PO SCH (08:56)
[2024-03-11] MEDS: PANTOPRAZOLE 40 MG/10 ML VIAL IV SCH (08:56)
[2024-03-11 10:41] LABS: ALT 33 U/L (10-49); AST 27 U/L (14-35); Albumin 4.2 g/dL (3.8-4.9); Albumin/Globulin Ratio 1.83 Ratio (1.60-3.17); Alkaline Phosphatase 64 U/L (41-126); Blood Urea Nitrogen 10.1 mg/dL (9.0-27.0); Chloride 102 mmol/L (96-109); Globulin 2.3 g/dL (1.6-3.3); Glucose 104 mg/dL (70-110); Potassium 4.1 mmol/L (3.5-5.5); Sodium 138 mmol/L (135-145); Total Protein 6.5 g/dL (6.2-8.2)
--- NOTE | 2024-03-11 14:55 | P.CONS ---
History of Present Illness - Reason for Consult Consult date: 03/11/24 Enteritis Requesting physician: Chet E Sheet - Chief Complaint Abdominal pain, diarrhea - History of Present Illness This is a pleasant 33-year-old male with a history of chronic nausea and vomiting, history of cholecystectomy and daily alcohol use as well as nicotine dependence. Patient drinks about a pint a day. States he has had nausea and vomiting and diarrhea for many years. He has had previous upper endoscopy many years ago and a colonoscopy in October of this year with Dr. Wilson for complaints of rectal bleeding with findings of grade 2 internal hemorrhoids otherwise normal colon. His last upper endoscopy was in [address] Singh for complaints of nausea vomiting and abdominal pain with findings of a small hiatal hernia and gastritis. Patient currently states he has some nausea but no vomiting. Has not had any diarrhea today. Patient appears to be a bit shaky he is on CIWA protocol. Admitting labs WBC 17.5 hemoglobin 17 platelet count 287, 000 INR 1.1 sodium 134 potassium 3.6 BUN 13 creatinine 0.8 total bilirubin 1.8 AST 33 ALT 44 alkaline phosphatase 75 amylase 235 lipase 39 with repeat WBC of 6.7 and otherwise other labs are unremarkable. Patient also had a CT of the abdomen and pelvis as part of his workup that reported correlate with small bowel enteritis, mild splenomegaly and hepatic steatosis. Gastroenterology was consulted for enteritis. Review of Systems REVIEW OF SYSTEMS: CARDIOPULMONARY: No chest pain or shortness of breath. Gastrointestinal: Abdominal pain. Chronic nausea and vomiting. Chronic diarrhea. No hematemesis, coffee-ground emesis. No rectal bleeding, or melena. GENITOURINARY: No dysuria or hematuria. MUSCULOSKELETAL: Bilateral [id number] amputations. SKIN: No rashes. No jaundice. ENDOCRINE: No chills, fevers. No excessive weight gain or loss. No polydipsia or polyuria. PSYCHIATRIC: Unremarkable. NEUROLOGY: No change in mental status. Denies dizziness, headache. ENT: Vision unremarkable. CONSTITUTIONAL: No recent weight loss. No fever, chills, night sweats. Past Medical History Past Medical History: GERD/Reflux Additional Past Medical History / Comment(s): frequent abdominal pain, N/V, hx. of umbilical hernia, hx of kidney stones History of Any Multi-Drug Resistant Organisms: None Reported Past Surgical History: Cholecystectomy, Hernia Repair Additional Past Surgical History / Comment(s): as a baby, Hernia repair. Past Anesthesia/Blood Transfusion Reactions: No Reported Reaction Additional Past Anesthesia/Blood Transfusion Reaction / Comm: States had a cardiology work-up. Dr. Ragland saw this patient. Report - Sinus pauses, asymptomatic, suspect vagal in etiology. See EKG- EMR Past Psychological History: No Psychological Hx Reported Smoking Status: Current some day smoker, Vaper Past Alcohol Use History: Heavy, Occasional Past Drug Use History: Marijuana Additional Drug Use History / Comment(s): Smokes daily, none 24 hours prior to surgery - Past Family History Mother Family Medical History: No Reported History Medications and Allergies Home Medications Medication Instructions Recorded Confirmed Type Amoxic-Pot Clav 875-125Mg 1 tab PO DIRECTED 03/10/24 03/10/24 History [Augmentin 875-125] Allergies Allergy/AdvReac Type Severity Reaction Status Date / Time adhesive tape Allergy Rash/Hives Verified 03/10/24 14:29 Physical Exam Vitals: Vital Signs Temp Pulse Pulse Resp BP BP BP 03/11/24 07:00 98.3 F 78 16 138/81 03/11/24 03:52 98.2 F 76 18 132/81 03/10/24 19:22 98.5 F 112 H 16 138/77 03/10/24 17:28 98.4 F 104 H 137/89 03/10/24 16:52 82 20 142/98 03/10/24 14:38 111 H 20 152/98 03/10/24 13:48 99 18 156/99 03/10/24 12:04 97.4 F L 86 18 124/90 Pulse Ox 03/11/24 07:00 97 03/11/24 03:52 98 03/10/24 19:22 98 03/10/24 17:28 95 03/10/24 16:52 98 03/10/24 14:38 97 03/10/24 13:48 96 03/10/24 12:04 99 Intake and Output 03/10/24 03/11/24 03/11/24 22:59 06:59 14:59 Other: # Voids 2 1 Weight 79.379 kg General appearance: The patient is alert, oriented, appears in no acute distress. HET: Head is normocephalic and atraumatic. Conjunctiva pink. Sclera anicteric. Neck: Supple without lymphadenopathy. Trachea midline. Heart: Regular. Lungs: Equal expansion, normal respiratory effort. Abdomen: Soft, nontender, nondistended. Skin: No rashes. No jaundice. Extremities: Normal skin color and turgor. No pedal edema. Neurological: No focal deficits. Alert and oriented x3. Results CBC & Chem 7: 03/11/24 06:15 03/11/24 06:15 Labs: Abnormal Lab Results - Last 24 Hours (Table) 03/10/24 03/10/24 03/10/24 Range/Units 12:44 12:44 12:44 WBC 17.5 H (3.8-10.6) k/uL Neutrophils # 15.5 H (1.3-7.7) k/uL Lymphocytes # 0.8 L (1.0-4.8) k/uL APTT 20.0 L (22.0-30.0) sec Sodium 134 L (137-145) mmol/L Carbon Dioxide 21 L (22-30) mmol/L Total Bilirubin 1.8 H (0.2-1.3) mg/dL Amylase 235 H (30-110) U/L Urine Protein (Negative) Urine Ketones (Negative) Urine Mucus (None) /hpf 03/10/24 Range/Units 12:48 WBC (3.8-10.6) k/uL Neutrophils # (1.3-7.7) k/uL Lymphocytes # (1.0-4.8) k/uL APTT (22.0-30.0) sec Sodium (137-145) mmol/L Carbon Dioxide (22-30) mmol/L Total Bilirubin (0.2-1.3) mg/dL Amylase (30-110) U/L Urine Protein 1+ H (Negative) Urine Ketones 4+ H (Negative) Urine Mucus Moderate H (None) /hpf Comments: CT abdomen pelvis with contrast reports mild fluid distention of the small bowel with mild scattered wall thickening may reflect small bowel enteritis. Correlate with small bowel enteritis. Mild splenomegaly and hepatic steatosis Assessment and Plan (1) Enteritis Narrative/Plan: 33-year-old male presenting with nausea vomiting and diarrhea. States he has chronic diarrhea and GI upset. Patient mitts to long history of alcoholism and drinks a pint a day. He has had recent colonoscopy done in October of this year that was normal with grade 2 internal hemorrhoids and previous endoscopic evaluation 2013 for similar complaints with findings of small hiatal hernia and gastritis. Symptoms are all likely secondary to alcohol gastritis, possible viral gastroenteritis currently. Recommend alcohol abstinence. Proton pump in hibitor. WBC improved today to 6.7 from 17.5 on admission. Pro Calcitonin 0.06. All other labs are unremarkable. Current Visit: Yes Status: Acute Code(s): K52.9 - NONINFECTIVE GASTROENTERITIS AND COLITIS, UNSPECIFIED SNOMED Code(s): 79634603 (2) Chronic diarrhea Current Visit: Yes Status: Acute Code(s): K52.9 - NONINFECTIVE GASTROENTERITIS AND COLITIS, UNSPECIFIED SNOMED Code(s): 462649757 (3) Alcohol abuse Current Visit: Yes Status: Acute Code(s): F10.10 - ALCOHOL ABUSE, UNCOMPLICATED SNOMED Code(s): 81545460 (4) Nausea & vomiting Current Visit: No Status: Acute Code(s): R11.2 - NAUSEA WITH VOMITING, UNSPECIFIED SNOMED Code(s): 95078746 Plan: 1. Continue symptomatic and supportive care 2. Recommend low-fat diet 3. Antiemetics as needed like 4. Protonix 40 mg daily 5. Recommend alcohol abstinence 6. No plans on endoscopic evaluation 7. Monitor for alcohol withdrawal symptoms, CIWA protocol 8. Anticipate discharge in the next 24 to 48 hours Thank you for this consultation, we will continue to follow. Dr. June Wilson I agree with the dictator's note, documented as a scribe by Elsa Bustos.
--- NOTE | 2024-03-11 23:20 | P.PN ---
Subjective This is a pleasant 33 years old male with past medical history of GERD, umbilical hernia, kidney stone, He has history of cholecystectomy He presents because of recurrent nausea and vomiting since yesterday, he says each time he eats something or drinking able to walk,) there was little blood in his vomiting. He states his bowel movement is normal Also complaining from mild abdominal pain, central nonradiating of 1 day duration about 7/10 in severity [place] like sharp with no specific precipitating or relieving factors No specific urinary symptoms like dysuria or urgency No chest pain or dyspnea. No headache dizziness weakness or numbness. Patient states that he drinks alcohol but because of his stomach sickness he was unable to drink much last week, and his last drink was Friday. Patient vitals are stable Patient has unremarkable BMP, liver enzymes, INR CBC showing leukocytosis with WBC 17.5 Lipase normal 39, urinalysis negative Serum alcohol less than 10 CT of the abdomen pelvis with contrast showing small bowel enteritis, hepatic steatosis and mild hepatomegaly 03/11/2024 Patient awake alert, no significant withdrawal symptoms He has history of alcohol use disorder and presents with enteritis Patient has mild to moderate periumbilical pain with mild tenderness no rebound tenderness or guarding Patient is tolerating diet 100% No fever leukocytosis significantly improved 17 down to 6K. Patient will be considered for discharge 24 to 48 hours if he keeps improving Objective - Vital Signs Vital signs: Vital Signs Temp 98.4 F 03/11/24 14:26 Pulse 81 03/11/24 14:26 Resp 16 03/11/24 14:26 BP 146/90 03/11/24 14:26 Pulse Ox 96 03/11/24 14:26 FiO2 Intake & Output 03/11/24 03/11/24 03/12/24 06:59 18:59 06:59 Intake Total 236 Balance 236 Intake: Oral 236 Other: # Voids 1 3 2 - Exam GENERAL: The patient is alert and oriented x3, not in any acute distress. Well developed, well nourished. HEENT: Pupils are round and equally reacting to light. EOMI. No scleral icterus. No conjunctival pallor. Normocephalic, atraumatic. No pharyngeal erythema. No thyromegaly. CARDIOVASCULAR: S1 and S2 present. No murmurs, rubs, or gallops. PULMONARY: Chest is clear to auscultation, no wheezing , no crackles. -ABDOMEN: Soft, mild periumbilical tenderness with no rebound tenderness, nondistended, normoactive bowel sounds. No palpable organomegaly. MUSCULOSKELETAL: No joint swelling or deformity. EXTREMITIES: No cyanosis, clubbing, or pedal edema. NEUROLOGICAL: Gross neurological examination did not reveal any focal deficits. SKIN: No rashes. no petechiae. - Labs CBC & Chem 7: 03/11/24 06:15 03/11/24 06:15 Labs: Abnormal Lab Results - Last 24 Hours (Table) 03/11/24 Range/Units 06:15 BUN/Creatinine Ratio 10.10 L (12.00-20.00) Ratio Assessment and Plan Assessment: Acute enteritis, seen on CAT scan of the abdomen. Nausea vomiting could be acute gastroenteritis versus other, Could be exacerbated by alcohol use. patient reports with some blood in the vomiting Alcohol use disorder at risk of withdrawal Obesity with BMI of 31 hepatic steatosis and mild hepatomegaly. Most likely secondary to alcohol effect Plan: Continue with normal saline IV Protonix GI consult Monitor hemoglobin On CIWA protocol Patient was counseled to quit drinking alcohol Avoid NSAIDs or anticoagulants Labs and medication were reviewed.. Continue same treatment. Continue with symptomatic treatment. Resume home medication. Monitor labs and vitals. DVT and GI prophylaxis. Further recommendations as per clinical course of the patient DVT prophylaxis: SCD, GI Prophylaxis: Pepcid Prognosis is guarded
[2024-03-12] MEDS ORDERED: ACETAMINOPHEN TAB 325 MG TAB PO PRN (08:59)
--- NOTE | 2024-03-12 09:58 | P.PN ---
Subjective Progress Note Date: 03/12/24 Principal diagnosis: Gastroenteritis This is a pleasant 33-year-old male with a history of chronic nausea and vomiting, history of cholecystectomy and daily alcohol use as well as nicotine dependence. Patient drinks about a pint a day. States he has had nausea and vomiting and diarrhea for many years. He has had previous upper endoscopy many years ago and a colonoscopy in October of this year with Dr. Wilson for complaints of rectal bleeding with findings of grade 2 internal hemorrhoids otherwise normal colon. His last upper endoscopy was in [address] Singh for complaints of nausea vomiting and abdominal pain with findings of a small hiatal hernia and gastritis. Patient currently states he has some nausea but no vomiting. Has not had any diarrhea today. Patient appears to be a bit shaky he is on CIWA protocol. Admitting labs WBC 17.5 hemoglobin 17 platelet count 287,000 INR 1.1 sodium 134 potassium 3.6 BUN 13 creatinine 0.8 total bilirubin 1.8 AST 33 ALT 44 alkaline phosphatase 75 amylase 235 lipase 39 with repeat WBC of 6.7 and otherwise other labs are unremarkable. Patient also had a CT of the abdomen and pelvis as part of his workup that reported correlate with small bowel enteritis, mild splenomegaly and hepatic steatosis. Gastroenterology was consulted for enteritis. 03/12/2024 Patient seen and examined today as a follow-up. He states he still has some abdominal pain however nausea and vomiting has improved. Patient still has some mild tremors/shakes likely from alcohol withdrawal. He states he has been tolerating his diet. Objective - Vital Signs Vital signs: Vital Signs Temp 97.9 F 03/12/24 02:00 Pulse 85 03/12/24 02:00 Resp 16 03/11/24 14:26 BP 134/87 03/12/24 02:00 Pulse Ox 99 03/12/24 02:00 FiO2 Intake & Output 03/11/24 03/11/24 03/12/24 06:59 18:59 06:59 Intake Total 236 Balance 236 Intake: Oral 236 Other: # Voids 1 3 2 - Exam General appearance: The patient is alert, oriented, appears in no acute distress. HET: Head is normocephalic and atraumatic. Conjunctiva pink. Sclera anicteric. Neck: Supple without lymphadenopathy. Abdomen: Soft, nontender, nondistended with bowel sounds. No guarding or rigidity. Extremities: Normal skin color and turgor. No pedal edema Skin: No rashes, no jaundice Neurological: No focal deficits. Alert and oriented. - Labs CBC & Chem 7: 03/11/24 06:15 03/11/24 06:15 Labs: Abnormal Lab Results - Last 24 Hours (Table) 03/11/24 Range/Units 06:15 BUN/Creatinine Ratio 10.10 L (12.00-20.00) Ratio Assessment and Plan (1) Enteritis Narrative/Plan: 33-year-old male presenting with nausea vomiting and diarrhea. States he has chronic diarrhea and GI upset. Patient mitts to long history of alcoholism and drinks a pint a day. He has had recent colonoscopy done in October of this year that was normal with grade 2 internal hemorrhoids and previous endoscopic evaluation 2013 for similar complaints with findings of small hiatal hernia and gastritis. Symptoms are all likely secondary to alcohol gastritis, possible viral gastroenteritis currently. Recommend alcohol abstinence. Proton pump inhibitor. WBC improved today to 6.7 from 17.5 on admission. Pro Calcitonin 0.06. All other labs are unremarkable. Current Visit: Yes Status: Acute Code(s): K52.9 - NONINFECTIVE GASTROENTERITIS AND COLITIS, UNSPECIFIED SNOMED Code(s): 97591099 (2) Chronic diarrhea Current Visit: Yes Status: Acute Code(s): K52.9 - NONINFECTIVE GASTROENTERITIS AND COLITIS, UNSPECIFIED SNOMED Code(s): 122298241 (3) Alcohol abuse Current Visit: Yes Status: Acute Code(s): F10.10 - ALCOHOL ABUSE, UNCOMPLICATED SNOMED Code(s): 91179650 (4) Nausea & vomiting Current Visit: No Status: Acute Code(s): R11.2 - NAUSEA WITH VOMITING, UNSPECIFIED SNOMED Code(s): 16320396 Plan: 1. Continue symptomatic and supportive care 2. Recommend low-fat diet 3. Antiemetics as needed 4. Protonix 40 mg daily 5. Recommend alcohol abstinence 6. No plans on endoscopic evaluation 7. Monitor for alcohol withdrawal symptoms, [facility] protocol 8. Patient is cleared from gastroenterology for discharge. His symptoms recur he can follow-up with gastroenterology in the outpatient setting. Thank you for allowing us to participate in the care of the patient, the GI service will sign off, gastroenterology will not be available at the hospital this weekend and through next week. If further evaluation by gastroenterology is required the patient will need transfer as per the primary team's discretion. Dr. June Wilson I agree with the dictator's note, documented as a scribe by Elsa Bustos.
[2024-03-12] MEDS ORDERED: polyethylene glycoL 3350 17 GM POWD.PACK PO PRN (12:00)
[2024-03-12] MEDS: DOCUSATE 100 MG CAP PO SCH (13:17)
[2024-03-12] MEDS: HYDROcodone/APAP 5-325MG 1 EACH TAB PO PRN (15:48)
[2024-03-12] MEDS: IBUPROFEN 600 MG TAB PO PRN (20:27)
[2024-03-13 08:45] VITALS: RESP 14
[2024-03-13 15:16] VITALS: BP 129/83; PULSE 63; TEMP 98.4
== END 2024-03-13 15:03 | disposition home or self-care (01) ==
LOC: EC 11:59 → 6NMEDSUR 15:31
PROVIDERS: ADMIT Internal Medicine; ATTEND Internal Medicine
DX: K52.9 Noninfective gastroenteritis and colitis, unspecified (principal); F10.10 Alcohol abuse, uncomplicated; E66.9 Obesity, unspecified; Z68.31 Body mass index [BMI] 31.0-31.9, adult; K76.0 Fatty (change of) liver, not elsewhere classified; K21.9 Gastro-esophageal reflux disease without esophagitis; Z87.442 Personal history of urinary calculi; Z90.49 Acquired absence of other specified parts of digestive tract; F17.219 Nicotine dependence, cigarettes, with unspecified nicotine-induced disorders
CPT/HCPCS: 96366 ×3; 96372 ×2; 96376 ×4; 96361; 96365; 96375; 99285; 36415; 80053 ×2; 82150; 83690; 85025 ×2; 85610; 85730; 81001; 84145; 71045; 74177; G0378 ×4; G0480; J2060; J2270 ×3; J1644; J2765; J3411; J2405 ×3; C9113 ×3; 80320